=== PATIENT | female | born 1950 | race Caucasian/White ===

== ENCOUNTER 2019-05-13 10:31 | Outpatient (CLI) | payer MEDICARE, SELFPAY ==
[2019-05-13 11:05] LABS: Basophils Absolute Auto 0.12 K/mm3 (0.00-0.10); Basophils Percent Auto 1.5 % (0.0-1.0); Eosinophils Absolute Auto 0.37 K/mm3 (0.02-0.50); Eosinophils Percent Auto 4.7 % (1.0-6.0); Hematocrit 36.2 % (35.0-42.0); Immature Granulocyte Absolute 0.02 K/mm3 (0.00-0.00); Immature Granulocyte Percent A 0.3 % (0.0-0.0); Immature Platelet Fraction Pct 1.4 % (1.0-7.0); Lymphocytes Absolute Auto 2.66 K/mm3 (1.10-4.50); Lymphocytes Percent Auto 33.7 % (18.0-42.0); Mean Corpuscular HGB Conc 33.1 g/dL (32.0-36.0); Mean Corpuscular Hemoglobin 30.1 pg (27.0-31.0); Mean Corpuscular Volume 90.7 fL (78.0-102.0); Mean Platelet Volume 8.9 fl (9.2-11.8); Monocytes Percent Auto 13.9 % (2.0-11.0); Neutrophils Absolute Auto 3.6 K/mm3 (1.7-7.2); Neutrophils Percent Auto 45.9 % (50.0-70.0); Platelet Count Result 576 K/mm3 (150-420); Red Blood Count 3.99 M/mm3 (4.20-5.40); Red Cell Distribution Width 13.5 % (11.6-14.4); White Blood Count 7.9 K/mm3 (4.8-10.8)
[2019-05-13 12:06] LABS: Alanine Aminotransferase 22 U/L (14-59); Albumin Level 3.7 g/dL (3.4-5.0); Alkaline Phosphatase 87 U/L (46-116); Anion Gap 18.1 mmol/L (7-16); Aspartate Amino Transferase 15 U/L (15-37); Bilirubin,Total 0.3 mg/dL (0.00-1.00); Blood Urea Nitrogen 39 mg/dL (7-18); Calcium 9.3 mg/dL (8.5-10.1); Carbon Dioxide 24 mmol/L (21-32); Chloride 100 mmol/L (98-108); Estimated Glomerular Filt Rate 33; Ferritin 62 ng/mL (8-252); Glucose 175 mg/dL (70-99); Iron 71 ug/dL (50-170); Osmolality Calculated 297 mOsm/kg (285-295); Percent Iron Saturation 20 % (12-57); Potassium 5.1 mmol/L (3.5-5.1); Sodium 137 mmol/L (136-145)
[2019-05-17 20:05] LABS: Transferrin 283 mg/dL (188-341)
== END 2019-05-13 10:32 | disposition home or self-care (01) ==
PROVIDERS: PCP Family Medicine; Visit Provider Internal Medicine Hematology & Oncology
DX: D50.9 Iron deficiency anemia, unspecified (principal)
CPT/HCPCS: 36415; 80053; 82728; 83540; 83550; 84466; 85025; 85055

== ENCOUNTER 2019-05-27 07:26 | Outpatient (CLI) | payer MEDICARE, SELFPAY ==
[2019-05-27 08:00] VITALS: BP 126/83; PULSE 68; RESP 12; TEMP 36.6; O2SAT 97
[2019-05-27] MEDS: IRON SUCROSE COMPLEX 300 MG in SODIUM CHLORIDE 0.9% IV 250 ML 125 MG IV PUSH (08:02)
--- NOTE | 2019-05-27 10:16 | PC.NURSE ---
Patient tolerated for Venofer infusion #1 of #3. No concerns. See Mar. Safe exit of hospital.
== END 2019-05-27 07:27 | disposition home or self-care (01) ==
LOC: CHSTREATRM 07:29
PROVIDERS: PCP Family Medicine; Visit Provider Internal Medicine Hematology & Oncology
DX: D50.9 Iron deficiency anemia, unspecified (principal)
CPT/HCPCS: 96365; 96366; J1756; J7050

== ENCOUNTER 2019-06-03 07:49 | Outpatient (CLI) | payer MEDICARE, SELFPAY ==
[2019-06-03] MEDS: IRON SUCROSE COMPLEX 300 MG in SODIUM CHLORIDE 0.9% IV 235 ML 125 MG IVPB (08:38)
== END 2019-06-03 07:50 | disposition home or self-care (01) ==
LOC: CHSTREATRM 07:51
PROVIDERS: PCP Family Medicine; Visit Provider Internal Medicine Hematology & Oncology
DX: D50.9 Iron deficiency anemia, unspecified (principal)
CPT/HCPCS: 96365; 96366; J1756; J7050

== ENCOUNTER 2019-06-14 09:08 | Outpatient (CLI) | payer MEDICARE, SELFPAY ==
[2019-06-14] MEDS: IRON SUCROSE COMPLEX 300 MG in SODIUM CHLORIDE 0.9% IV 250 ML 125 MG IVPB (09:55)
--- NOTE | 2019-06-14 12:12 | PC.NURSE ---
Patient tolerated Venofer infusion. This is the last venofer infusion in this series this time. Patient reports feeling better. Having a little more energy. Safe exit of hospital.
== END 2019-06-14 09:09 | disposition home or self-care (01) ==
PROVIDERS: PCP Family Medicine; Visit Provider Internal Medicine Hematology & Oncology
DX: D50.9 Iron deficiency anemia, unspecified (principal)
CPT/HCPCS: 96365; 96366; J1756

== ENCOUNTER 2020-01-27 14:01 | Outpatient (CLI) | payer MEDICARE, SELFPAY ==
[2020-01-27 15:18] LABS: Ferritin 141 ng/mL (8-252)
== END 2020-01-27 14:02 | disposition home or self-care (01) ==
PROVIDERS: PCP Family Medicine; Visit Provider Internal Medicine Hematology & Oncology
DX: D50.9 Iron deficiency anemia, unspecified (principal)
CPT/HCPCS: 36415; 82728

== ENCOUNTER 2020-08-31 12:34 | Outpatient (CLI) | payer MEDICARE, SELFPAY ==
[2020-08-31] MEDS: IRON SUCROSE COMPLEX 300 MG in SODIUM CHLORIDE 0.9% IV 250 ML 125 MG IVPB (13:00)
[2020-08-31 13:13] VITALS: BP 111/59; PULSE 72; RESP 16; O2SAT 97
== END 2020-08-31 12:35 | disposition home or self-care (01) ==
LOC: CHSTREATRM 12:39
PROVIDERS: PCP Family Medicine; Visit Provider Internal Medicine Hematology & Oncology
DX: D50.9 Iron deficiency anemia, unspecified (principal)
CPT/HCPCS: 96365; 96366; J1756; J7050

== ENCOUNTER 2020-09-07 12:38 | Outpatient (CLI) | payer MEDICARE, SELFPAY ==
[2020-09-07 12:57] VITALS: BP 140/49; PULSE 78; RESP 14; TEMP 36.7; O2SAT 95
[2020-09-07] MEDS: IRON SUCROSE COMPLEX 300 MG in SODIUM CHLORIDE 0.9% IV 235 ML 125 MG IVPB (13:42)
--- NOTE | 2020-09-07 15:38 | PC.NURSE ---
Patient here for #2 of 3 IV Venofer infusion. No concerns voiced. IV Venofer administered. Tolerated well. Safe exit of hospital. Will return next 09/13/20 at 1300
== END 2020-09-07 12:39 | disposition home or self-care (01) ==
LOC: CHSTREATRM 12:42
PROVIDERS: PCP Family Medicine; Visit Provider Internal Medicine Hematology & Oncology
DX: D50.9 Iron deficiency anemia, unspecified (principal)
CPT/HCPCS: 96365; 96366; J1756; J7050

== ENCOUNTER 2020-09-13 12:23 | Outpatient (CLI) | payer MEDICARE, SELFPAY ==
[2020-09-13] MEDS: IRON SUCROSE COMPLEX 300 MG in SODIUM CHLORIDE 0.9% IV 250 ML 125 MG IVPB (12:35)
[2020-09-13 13:00] VITALS: BP 130/68; PULSE 72; RESP 16; O2SAT 96; BMI 41.1
--- NOTE | 2020-09-13 14:24 | PC.NURSE ---
Patient here for #3 of 3 IV Venofer infusions. No concerns voiced. Venofer IV administered. Tolerated well. Safe exit of hospital.
== END 2020-09-13 12:24 | disposition home or self-care (01) ==
LOC: CHSTREATRM 12:28
PROVIDERS: PCP Family Medicine; Visit Provider Internal Medicine Hematology & Oncology
DX: D50.9 Iron deficiency anemia, unspecified (principal)
CPT/HCPCS: 96365; 96366; J1756; J7050

== ENCOUNTER 2021-06-04 09:48 | Outpatient (CLI) | payer MEDICARE, SELFPAY ==
[2021-06-04 10:09] VITALS: BMI 43.1
[2021-06-04 10:11] VITALS: BP 138/62; PULSE 80; RESP 20; TEMP 35.7; O2SAT 98
[2021-06-04] MEDS: IRON SUCROSE COMPLEX 300 MG in SODIUM CHLORIDE 0.9% IV 250 ML 166.67 MG IVPB (10:15)
--- NOTE | 2021-06-04 11:57 | PC.NURSE ---
Patient here for #1 of 4 IV Venofer infusions. Has had Venofer infusion in past. No concerns voiced. IV Venofer administered. SEE MAR. Tolerated well. Safe exit of hospital. Will return June at 1400.
== END 2021-06-04 09:49 | disposition home or self-care (01) ==
PROVIDERS: PCP Family Medicine; Visit Provider Internal Medicine Hematology & Oncology
DX: D50.9 Iron deficiency anemia, unspecified (principal)
CPT/HCPCS: 96365; 96366; J1756; J7050

== ENCOUNTER 2021-06-11 12:19 | Outpatient (CLI) | payer MEDICARE, SELFPAY ==
[2021-06-11 12:23] VITALS: BMI 39.3
[2021-06-11] MEDS: IRON SUCROSE COMPLEX 300 MG in SODIUM CHLORIDE 0.9% IV 235 ML 125 MG IVPB (12:45)
[2021-06-11 12:51] VITALS: BP 117/60; PULSE 92; RESP 14; TEMP 35.7; O2SAT 95
--- NOTE | 2021-06-11 14:34 | PC.NURSE ---
Patient here for IV Venofer infusion #2 of 4. No concerns. IV Venofer administered. See MAR. Tolerated well. Safe exit of hospital. Will return June 18, 2021 AT 1000 For #3.
== END 2021-06-11 12:20 | disposition home or self-care (01) ==
LOC: CHSTREATRM 12:22
PROVIDERS: PCP Family Medicine; Visit Provider Internal Medicine Hematology & Oncology
DX: D50.9 Iron deficiency anemia, unspecified (principal)
CPT/HCPCS: 96365; 96366; 96367; J1756; J7050

== ENCOUNTER 2021-06-18 09:53 | Outpatient (CLI) | payer MEDICARE, SELFPAY ==
[2021-06-18 10:28] VITALS: BP 109/59; PULSE 84; RESP 14; TEMP 36.6; O2SAT 99; BMI 39.3
[2021-06-18] MEDS: IRON SUCROSE COMPLEX 300 MG in SODIUM CHLORIDE 0.9% IV 250 ML 125 MG IVPB (10:40)
--- NOTE | 2021-06-18 12:41 | PC.NURSE ---
Patient here for IV Venofer #3 of 4. No concerns voiced. IV Venofer administered see MAR. Tolerated well. Safe exit of hospital. Back 06/25/21 for #4.
== END 2021-06-18 09:54 | disposition home or self-care (01) ==
PROVIDERS: PCP Family Medicine; Visit Provider Internal Medicine Hematology & Oncology
DX: D50.9 Iron deficiency anemia, unspecified (principal)
CPT/HCPCS: 96365; 96366; J1756; J7050

== ENCOUNTER 2021-07-09 09:03 | Outpatient (CLI) | payer MEDICARE, SELFPAY ==
[2021-07-09 09:11] VITALS: BMI 39.3
[2021-07-09] MEDS: diphenhydrAMINE HCl CAP 25 MG CAPSULE PO (09:22)
[2021-07-09] MEDS: ACETAMINOPHEN 325 MG TABLET 650 MG PO (09:22)
[2021-07-09 09:23] VITALS: BP 136/79; PULSE 68; RESP 14; TEMP 36.4; O2SAT 98
[2021-07-09] MEDS: IRON SUCROSE COMPLEX 300 MG in SODIUM CHLORIDE 0.9% IV 235 ML 125 MG IVPB (09:25)
--- NOTE | 2021-07-09 11:59 | PC.NURSE ---
Patient here for #4 of 4 IV Venofer infusions. All concerns answered. Education on med given. Pre medicated with Tylenol and Benadryl this time since got chills with # 3 of 4. Also at that time had a UTI going on. IV Venofer administered SEE JUN. Tolerated well. NO chills reported. Safe exit of hospital.
== END 2021-07-09 09:04 | disposition home or self-care (01) ==
LOC: CHSTREATRM 09:06
PROVIDERS: PCP Family Medicine; Visit Provider Internal Medicine Hematology & Oncology
DX: D50.9 Iron deficiency anemia, unspecified (principal)
CPT/HCPCS: 96365; 96366; A9270; J1756; J7050

== ENCOUNTER 2022-08-29 09:47 | Outpatient (CLI) | payer MEDICARE, SELFPAY ==
[2022-08-29] MEDS: IRON SUCROSE COMPLEX 300 MG in SODIUM CHLORIDE 0.9% IV 250 ML 125 MG IVPB (10:05)
[2022-08-29 10:13] VITALS: BMI 45.6
[2022-08-29] MEDS: diphenhydrAMINE HCl CAP 25 MG CAPSULE PO (10:21)
[2022-08-29 11:02] VITALS: BMI 33.6
--- NOTE | 2022-08-29 12:00 | PC.NURSE ---
Patient here for # 1 of 3 IV Venofer infusions. Education given. No concerns voiced. Premedicated with Benadryl as ordered. IV Venofer administered. SEE MAR. Tolerated well. Safe exit of hospital per wc with . Will return September 05, 2022Thursday at 1000.
== END 2022-08-29 09:48 | disposition home or self-care (01) ==
LOC: CHSTREATRM 09:49
PROVIDERS: PCP Family Medicine; Visit Provider Internal Medicine Hematology & Oncology
DX: D50.9 Iron deficiency anemia, unspecified (principal)
CPT/HCPCS: 96365; 96366; A9270; J1756; J7050

== ENCOUNTER 2022-09-05 09:56 | Outpatient (CLI) | payer MEDICARE, SELFPAY ==
[2022-09-05 10:15] VITALS: BP 134/63; PULSE 79; RESP 20; TEMP 35.4; O2SAT 96; BMI 41.5
--- NOTE | 2022-09-05 10:15 | PC.NURSE ---
Pt to room 203 per wc accompanied by her son. A&Ox3. Plan of care explained. Pt has no questions or concerns. Oriented to room. Pt up in recliner, call martell in reach. Reminded to call with needs.
[2022-09-05] MEDS: diphenhydrAMINE HCl CAP 25 MG CAPSULE PO (10:19)
[2022-09-05] MEDS: IRON SUCROSE COMPLEX 300 MG in SODIUM CHLORIDE 0.9% IV 250 ML 125 MG IVPB (10:20)
--- NOTE | 2022-09-05 12:20 | PC.NURSE ---
IV infused. Pt tolerated well. Has no questions or complaints. Discharged to home per wc with son.
== END 2022-09-05 09:57 | disposition home or self-care (01) ==
LOC: CHSTREATRM 10:02
PROVIDERS: PCP Family Medicine; Visit Provider Internal Medicine Hematology & Oncology
DX: D50.9 Iron deficiency anemia, unspecified (principal)
CPT/HCPCS: 96365; 96366; A9270; J1756; J7050

== ENCOUNTER 2022-11-13 10:07 | Outpatient (CLI) | payer MEDICARE, SELFPAY ==
[2022-11-13 10:40] VITALS: BMI 41.5
[2022-11-13] MEDS: diphenhydrAMINE HCl CAP 25 MG CAPSULE PO (10:40)
[2022-11-13] MEDS: IRON SUCROSE COMPLEX 300 MG in SODIUM CHLORIDE 0.9% IV 250 ML 125 MG IVPB (10:50)
[2022-11-13 11:16] VITALS: BP 130/69; PULSE 68; RESP 16; TEMP 36.6; O2SAT 97
--- NOTE | 2022-11-13 12:47 | PC.NURSE ---
Patient here for IV Venofer infusion. No concerns voiced. Reports has had many of these. Premedicated with Benadryl see MAR. IV Venofer administered. SEE MAR. Tolerated well. Safe exit of hospital per wc with .
== END 2022-11-13 10:08 | disposition home or self-care (01) ==
LOC: CHSTREATRM 10:11
PROVIDERS: PCP Nurse Practitioner; Visit Provider Internal Medicine Hematology & Oncology
DX: D50.9 Iron deficiency anemia, unspecified (principal)
CPT/HCPCS: 96365; 96366; A9270; J1756; J7050

== ENCOUNTER 2023-09-11 09:29 | Outpatient (CLI) | payer MEDICARE, SELFPAY ==
[2023-09-11 09:52] VITALS: BP 131/62; PULSE 75; RESP 16; TEMP 36.4; O2SAT 94; BMI 41.0
[2023-09-11] MEDS: diphenhydrAMINE HCl CAP 25 MG CAPSULE PO (10:25)
[2023-09-11] MEDS: IRON SUCROSE COMPLEX 300 MG in SODIUM CHLORIDE 0.9% IV 250 ML 125 MG IVPB (10:25)
[2023-09-11 12:57] VITALS: BP 117/57; PULSE 81; RESP 16; TEMP 36.4; O2SAT 95
== END 2023-09-11 09:30 | disposition home or self-care (01) ==
LOC: CHSTREATRM 09:33
PROVIDERS: PCP Family Medicine; Visit Provider Internal Medicine Hematology & Oncology
DX: D50.9 Iron deficiency anemia, unspecified (principal)
CPT/HCPCS: 96365; 96366; 96367; A9270; J1756; J7050

== ENCOUNTER 2023-09-18 09:40 | Outpatient (CLI) | payer MEDICARE, SELFPAY ==
[2023-09-18] MEDS: diphenhydrAMINE HCl CAP 25 MG CAPSULE PO (10:00)
[2023-09-18 10:05] VITALS: BMI 41.0
[2023-09-18] MEDS: IRON SUCROSE COMPLEX 300 MG in SODIUM CHLORIDE 0.9% IV 250 ML 125 MG IVPB (10:15)
[2023-09-18 10:20] VITALS: BP 137/78; PULSE 78; RESP 16; TEMP 36.4; O2SAT 96
[2023-09-18 12:34] VITALS: BP 139/76; PULSE 68; RESP 16; O2SAT 96
--- NOTE | 2023-09-18 12:35 | PC.NURSE ---
Patient here for #2 of 3 IV Venofer infusion. Education given. No concerns voiced. Reports tolerated well #1 last week. Pre medication and IV Venofer administered. SEE MAR. Tolerated well. Will return 09/22/23 at 11 a.m. for #3 of 3. Safe exit of hospital per wc/.
== END 2023-09-18 09:41 | disposition home or self-care (01) ==
PROVIDERS: PCP Family Medicine; Visit Provider Internal Medicine Hematology & Oncology
DX: D50.9 Iron deficiency anemia, unspecified (principal)
CPT/HCPCS: 96365; 96366; A9270; J1756; J7050

== ENCOUNTER 2023-09-22 10:51 | Outpatient (CLI) | payer MEDICARE, SELFPAY ==
[2023-09-22 11:04] VITALS: BP 142/69; PULSE 78; RESP 16; TEMP 36.1; O2SAT 95; BMI 41.8
[2023-09-22] MEDS: diphenhydrAMINE HCl CAP 25 MG CAPSULE PO (11:17)
[2023-09-22] MEDS: IRON SUCROSE COMPLEX 300 MG in SODIUM CHLORIDE 0.9% IV 250 ML 125 MG IVPB (11:17)
[2023-09-22 13:27] VITALS: BP 135/67; PULSE 80; RESP 16; TEMP 35.9; O2SAT 95
--- NOTE | 2023-09-22 13:35 | PC.NURSE ---
Patient tolerated iron infusion well. IV site discontinued for discharge.
== END 2023-09-22 13:34 | disposition home or self-care (01) ==
PROVIDERS: PCP Family Medicine; Visit Provider Internal Medicine Hematology & Oncology
DX: D50.9 Iron deficiency anemia, unspecified (principal)
CPT/HCPCS: 96365; 96366; A9270; J1756; J7050

== ENCOUNTER 2024-05-06 10:39 | Outpatient (CLI) | payer MEDICARE, SELFPAY ==
--- OUTSIDE RECORDS SUMMARY | 2024-05-06 10:47 | XMS_ITS | Encounter Summary ---
Author Organization [facility] Address [address] [place] [address]. [place], [place] [id number] [place] [id number] Care Team Providers Care Technical Information Specialist Name Role Phone Esequiel Smiley MD Primary Care Provider [phone] Cachorro Alvarez MD Primary Care Provider [phone] Angelika Bashir MD Primary Care Provider [phone] Encounter Details Date Type Department Care Team (Late st Contact Info) Description 09/11/2018 Abstract [facility] CONVERSION [address] [place] [address] , Generic Conversion, Social History Tobacco Use Types Packs/Day Years Used Date Smoking Tobacco: Former Cigarettes 1991 Smokeless Tobacco: Never Alcohol Use Standard Drinks/Week Comments No 0 (1 standard drink = 0.6 oz pur e alcohol) AUDIT-C Answer Date Recorded Frequency of Alcohol Consumption Never 07/09/2018 Average Number of Drinks Not on file 019 Frequency of Binge Drinking Not on file 08/2018 Comments Unknown Sex and Gender Information Value Date Recorded Sex Assigned at Female 07/09/2018 10:28 AM CDT 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 Gender Identity Female 07/09/2018 10:28 AM CDT Sexual Orientation Not on file documented as of this encounter Plan of Treatment Not on file documented as of this encounter Visit Diagnoses Not on filedocumented in this encounter Additional Health Concerns Infection Onset Date Last Indicated Resolved Time COVID-19 Rule Out 01/02/2024 01/02/2024 01/02/2024 3:07 PM CDT documented as of this encounter Care Teams Technical Information Specialist Relationship Specialty Start Date End Date Esequiel Smiley MD [address] [place] [address] PCP - General FAMILY PRACTICE 07/08/18 12/13/19 Cachorro Alvarez MD [address] [place] [id number] PCP - General FAMILY PRACTICE 12/14/19 01/01/24 Angelika Bashir MD [address] [place] [address] PCP - General FAMILY PRACTICE 01/02/24 documented as of this encounter
--- OUTSIDE RECORDS SUMMARY | 2024-05-06 10:47 | XMS_ITS | Encounter Summary ---
Author Organization [facility] Address [address] [place] [address]. [place] [address] [place] [address] Care Team Providers Care Waste Elimination Name Role Phone Esequiel Smiley MD Primary Care Provider [phone] Cachorro Alvarez MD Primary Care Provider [phone] Angelika Bashir MD Primary Care Provider [phone] Encounter Details Date Type Department Care Team (Late st Contact Info) Description 06/20/2017 Abstract [facility] CONVERSION [address] [place] [address] , Generic Conversion, Social History Tobacco Use Types Packs/Day Years Used Date Smoking Tobacco: Never Assessed Comments Unknown Sex and Gender Information Value Date Recorded Sex Assigned at Female 07/09/2018 10:28 AM CDT 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 Gender Identity Female 07/09/2018 10:28 AM CDT Sexual Orientation Not on file documented as of this encounter Plan of Treatment Not on file documented as of this encounter Visit Diagnoses Not on filedocumented in this encounter Additional Health Concerns Infection Onset Date Last Indicated Resolved Time COVID-19 Rule Out 01/02/2024 01/02/2024 01/02/2024 3:07 PM CDT documented as of this encounter Care Teams Waste Elimination Relationship Specialty Start Date End Date Esequiel Smiley [place] [place] [id number] PCP - General FAMILY PRACTICE 07/08/18 12/13/19 Cachorro Alvarez MD [address] [place] [address] PCP - General FAMILY PRACTICE 12/14/19 01/01/24 Angelika Bashir MD [address] [place] [address] PCP - General FAMILY PRACTICE 01/02/24 documented as of this encounter
--- OUTSIDE RECORDS SUMMARY | 2024-05-06 10:48 | XMS_ITS | Patient Health Summary ---
Author Organization [facility] Address [address] [place] [address] Care Team Providers Care Dermatologist And Dermatopathologist Name Role Phone Cachorro Alvarez MD Primary Care Provider [phone] Note from [facility],non-owned Affiliates and Associated Physician Practices is amultiple site organization consisting of ambulatory clinics and hospital sitesin [place], [place], [place] and [place]. This disclosure is being madepursuant to the Care Everywhere program and may not contain all information available regarding this patient. Last updated 17.[facility] RF Arrays Allergies No known active allergies Medications * Be aware that medications may not be up to date on this document. Alwaysverify current medications with the patient. * amLODIPine (Norvasc) 5 MG tablet(Started 09/25/2021) Take 1 (one) tablet by mouth once daily * aspirin EC (Ecotrin) 81 MG tablet Take 1 (one) tablet by mouth once daily * albuterol HFA (Proventil; Ventolin; Proair) 108 (90 Base) MCG/ACT inhaler (Started 07/03/2021) Inhale 2 (two) puffs by mouth every 4 hours as needed * triamcinolone acetonide (Kenalog) 0.1 % ointment(Started 01/31/2021) APPLY TOPICALLY TO THE AFFECTED AREA TWICE DAILY * folic acid (Folvite) 1 MG tablet(Started 09/25/2021) Take 1 (one) tablet by mouth once daily * furosemide (Lasix) 40 MG tablet(Started 09/04/2021) Take 1 (one) tablet by mouth once daily * allopurinol (Zyloprim) 100 MG tablet(Started 11/24/2021) Take 1 (one) tablet by mouth once daily * metFORMIN (Glucophage) 1000 MG tablet(Started 10/09/2021) Take 1 (one) tablet by mouth 2 times daily with morning and evening meal * montelukast (Singulair) 10 MG tablet(Started 10/09/2021) Take 1 (one) tablet by mouth once daily * pantoprazole EC (Protonix) 40 MG tablet(Started 10/09/2021) Take 1 (one) tablet by mouth once daily * lovastatin (Mevacor) 40 MG tablet(Started 10/09/2021) Take 1 (one) tablet by mouth at bedtime * fluticasone propionate (Flonase) 50 MCG/ACT nasal spray(Started 10/24/2021) [place] 2 (two) sprays into each nostril once daily * glimepiride (Amaryl) 2 MG tablet(Started 02/12/2022) TAKE 1 TABLET BY MOUTH EVERY MORNING WITH BREAKFAST * albuterol (Accuneb) 1.25 MG/3ML nebulizer solution(Started 08/11/2022) Inhale 3 mL by mouth every 4 hours as needed * ursodiol (Karime Forte) 500 MG tablet(Started 10/24/2022) Take 1 (one) tablet by mouth 2 times daily with morning and evening meal Reasons: Primary Biliary Cholangitis 3 refills by 10/24/2023 * Trulicity 0.75 MG/0.5ML injection Inject 0.75 (three-quarters) mg subcutaneously every 7 days Active Problems Problem Noted Date Diagnosed Date 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 Nonalcoholic fatty liver disease 11/28/2021 Social History Tobacco Use Types Packs/Day Years Used Date Smoking Tobacco: Former Cigarettes 25 Smokeless Tobacco: Never Tobacco Cessation:Counseling Given: Not Answered Comments:quit smoking at 41 y/o Alcohol Use Standard Drinks/Week Comments Not Currently 0 (1 standard drink = 0.6 oz pur e alcohol) seldom in hx Sex and Gender Information Value Date Recorded Sex Assigned at Not on file Gender Identity Not on file Sexual Orientation Not on file Last Filed Vital Signs Vital Sign Reading Time Taken Comments Blood Pressure 130/58 08/20/2023 1:39 PM CDT Pulse 88 08/20/2023 1:39 PM CDT Temperature 36.5 ??C (97.7 ??F) 08/20/2023 1:39 PM CD T Respiratory Rate 20 11/28/2021 12:3 8 PM CDT Oxygen Saturation 96% 08/20/2023 1:39 PM CDT Inhaled Oxygen Concentration - - Weight 105.5 kg (232 lb 9.6 oz) 08/20/2023 1:39 PM CDT Height 160 cm (5' 3 ) 08/20/2023 1:39 PM CDT Body Mass Index 41.2 08/20/2023 1:39 PM CDT Procedures * HEMOGLOBIN A1C(Performed 08/20/2023) Performed for Metabolic syndrome, Type 2 diabetes mellitus without complication, without long-term current use of insulin (HCC) * COMPREHENSIVE METABOLIC PANEL(Performed 08/20/2023) Performed for Primary biliary cholangitis (HCC) * CBC W AUTO DIFFERENTIAL(Performed 08/20/2023) Performed for Primary biliary cholangitis (HCC) * IMAGING/RADIOLOGY/XRAY RESULTS ORDER(Performed 09/15/2022) * PT INR (EXTERNAL RESULT ENTRY)(Performed 08/08/2022) * COMP MET PANEL (EXTERNAL RESULT ENTRY)(Performed 08/08/2022) * CBC W DIFF (EXTERNAL RESULT ENTRY)(Performed 08/08/2022) * LAB RESULTS ORDER(Performed 08/08/2022) * LAB RESULTS ORDER(Performed 08/08/2022) * LAB RESULTS ORDER(Performed 08/08/2022) * LAB RESULTS ORDER(Performed 02/24/2022) * LAB RESULTS ORDER(Performed 02/24/2022) * LAB RESULTS ORDER(Performed 02/24/2022) * CYTOPLASMIC PATTERN(Performed 11/28/2021) Performed for Nonalcoholic fatty liver disease * LEXUS BLOOD SINGLE PATTERN(Performed 11/28/2021) Performed for Nonalcoholic fatty liver disease * LEXUS HEP-2 IGG BY IFA(Performed 11/28/2021) Performed for Nonalcoholic fatty liver disease * ALKALINE PHOSPHATASE BLOOD ISOENZYME PANEL(Performed 11/28/2021) Performed for Nonalcoholic fatty liver disease * LEXUS BLOOD SCREEN W/REFLEX TITER(Performed 11/28/2021) Performed for Nonalcoholic fatty liver disease * COMPREHENSIVE METABOLIC PANEL(Performed 11/28/2021) Performed for Nonalcoholic fatty liver disease * IGM BLOOD(Performed 11/28/2021) Performed for Nonalcoholic fatty liver disease * IGG BLOOD(Performed 11/28/2021) Performed for Nonalcoholic fatty liver disease * IGA BLOOD(Performed 11/28/2021) Performed for Nonalcoholic fatty liver disease Results * (ABNORMAL) HEMOGLOBIN A1C (08/20/2023 2:42 PM CDT) Pathologist [facility] Hemoglobin A1c 6.6(H) <=5.6 % 08/21/2023 9:06 AM CDT [facility] Estimated Average Glucose 143 mg/dL 08/21/2023 9:06 AM T [facility] Comment: HbA1c Interpretation: Normal : < 5.7% Pre-diabetes: 5.7-6.4% Diabetes: Equal to or greater than 6.5% Test results diagnostic of diabetes should be repeated for confirmation. Treatment target values recommended by ADA and other clinical organizations should be used to evaluate metabolic control in patients. Reference: [place] [employer] Association, Standards of Care in Diabetes -2020 In patients 70 years and older consider HbA1c target range of 7.0-7.5% (Reference: Kai Robb et al. JAMDA. 2012) The Sebia assay for the measurement of HbA1c is a National Glycohemoglobin Standardization Program (NGSP) certified method. Blood BLOOD SPECIMEN / Unknown Lab Venipuncture / Unknown 08/20/2023 2:42 PM CDT 08/20/2023 2:54 PM CDT Cindy Wilkerson MD LAB - CHEMISTRY JAMEL GAUTHIER [facility] Organization Address City/State/[facility] Co de Phone Number [facility] [address] [address], [facility] [phone] * (ABNORMAL) CBC W/ DIFFERENTIAL (08/20/2023 2:42 PM CDT) [facility] WBC 11.2(H) 4.0 - 10.7 x10E9/L 08/20/2023 3:00 PM CDT [facility] RBC Count 3.93 3.90 - 5.20 x10E12/L 08/20/2023 3:00 PM CDT [facility] Hemoglobin 11.9 11.9 - 15.8 g/dL 08/20/2023 3:00 PM [facility] Hematocrit 35.8 34.8 - 46.1 % 08/20/2023 3:00 PM [facility] MCV 91.1 80.0 - 98.0 fL 08/20/2023 3:00 PM [facility] MCH 30.3 26.7 - 33.6 pg 08/20/2023 3:00 PM [facility] MCHC 33.2 31.7 - 36.3 g/dL 08/20/2023 3:00 PM [facility] RDW-CV 15.1(H) 11.3 - 14.8 % 08/20/2023 3:00 PM [facility] Platelet Count 570(H) 150 - 420 x10E9/L 08/20/2023 3:00 PM [facility] MPV 9.1 7.8 - 11.4 fL 08/20/2023 3:00 PM [facility] Neutrophil % 54.0 41.0 - 74.0 % 08/20/2023 3:00 PM [facility] Lymphocyte % 30.2 17.0 - 47.0 % 08/20/2023 3:00 PM [facility] Monocyte % 11.2(H) 3.0 - 11.0 % 08/20/2023 3:00 PM [facility] Eosinophil % 3.0 0.0 - 7.0 % 08/20/2023 3:00 PM [facility] Basophil % 1.3 0.0 - 1.6 % 08/20/2023 3:00 PM [facility] Immature Granulocytes % 0.3 0.0 - 1.0 % 08/20/2023 3:00 PM [facility] Neutrophil Absolute 6.04 1.60 - 7.50 x10E9/L 08/20/2023 3:00 PM [facility] Lymphocyte Absolute 3.38 1.00 - 4.40 x10E9/L 08/20/2023 3:00 PM [facility] Monocyte Absolute 1.25(H) 0.15 - 1.00 x10E9/L 08/20/2023 3:00 PM [facility] Eosinophil Absolute 0.34 0.00 - 0.60 x10E9/L 08/20/2023 3:00 PM [facility] Basophil Absolute 0.15(H) 0.00 - 0.13 x10E9/L 08/20/2023 3:00 PM [facility] NRBC 0.2(H) <=0.0 /100 WBC 08/20/2023 3:00 PM [facility] Blood BLOOD SPECIMEN / Unknown Lab Venipuncture / Unknown 08/20/2023 2:42 PM CDT 08/20/2023 2:54 PM CDT Cindy Wilekrson MD LAB - HEMATOLOGY ORD ERABLES [facility] [address] [place] [phone], [facility] [phone] * (ABNORMAL) COMPREHENSIVE METABOLIC PANEL (08/20/2023 2:42 PM CDT) Only the most recent of2 resultswithin the time period is included. BUN 28(H) 7 - 26 mg/dL 08/20/2023 3:27 PM [facility] Creatinine 1.16(H) 0.56 - 0.96 mg/dL 08/20/2023 3:27 PM [facility] Sodium 139 136 - 145 mmol/L 08/20/2023 3:27 PM [facility] Potassium 3.7 3.5 - 4.5 mmol/L 08/20/2023 3:27 PM [facility] Chloride 101 98 - 107 mmol/L 08/20/2023 3:27 PM [facility] CO2 25 22 - 29 mmol/L 08/20/2023 3:27 PM [facility] Glucose 129(H) 70 - 115 mg/dL 08/20/2023 3:27 PM [facility] Calcium 10.1 8.4 - 10.2 mg/dL 08/20/2023 3:27 PM [facility] Protein Total 8.0 6.0 - 8.3 g/dL 08/20/2023 3:27 PM [facility] Albumin 3.6 3.4 - 5.0 g/dL 08/20/2023 3:27 PM [facility] Bilirubin Total 0.3 0.2 - 1.2 mg/dL 08/20/2023 3:27 PM [facility] Alkaline Phosphatase 114 40 - 150 U/L 08/20/2023 3:27 PM [facility] ALT 17 5 - 55 U/L 08/20/2023 3:27 PM [facility] AST 14 5 - 34 U/L 08/20/2023 3:27 PM [facility] Anion Gap 13 6 - 16 08/20/2023 3:27 PM [facility] BUN/Creatinine Ratio 24(H) 7 - 23 08/20/2023 3:27 PM [facility] Osmolality Calculated 295 275 - 295 mOsm/kg 08/20/2023 3:27 PM [facility] Albumin/Globulin Ratio 0.8(L) 1.1 - 2.3 08/20/2023 3:27 PM [facility] eGFR by CKD-EPI 49(L) >=90 mL/min/1.7 3 m2 08/20/2023 3:27 PM [facility] Blood BLOOD SPECIMEN / Unknown Lab Venipuncture / Unknown 08/20/2023 2:42 PM CDT 08/20/2023 2:54 PM CDT Cindy Wilkerson MD LAB - CHEMISTRY JAMEL GAUTHIER [facility] Organization Address [facility] Co de Phone Number [facility] [address] [place] [phone] [phone] * IMAGING RADIOLOGY XRAY RESULTS ORDER (09/15/2022) Anatomical Region Laterality Modality Other 09/15/2022 Narrative 09/15/2022 Ordered by an unspecified provider. Scanned Document IMAGING * (ABNORMAL) CBC W DIFF (EXTERNAL RESULT ENTRY) (08/08/2022 10:12 AM CDT) WBC (EXTERNAL RESULT) 14.82(A) 10^3/ul [facility] Hemoglobin (EXTERNAL RESULT) 11.0(A) g/dl [facility] Hematocrit (EXTERNAL RESULT) 33.8(A) % [facility] Platelets (EXTERNAL RESULT) 647(A) 10^3/ul [facility] Neutrophil Absolute (EXTERNAL RESULT) 8.52 10^3/ul [facility] Blood BLOOD SPECIMEN / Unknown 08/08/2022 10:12 AM CDT Historical Provider LAB - HEMATOLOGY ORDERABLES Performing Organization Address City/[facility]/ZIP Co de Phone Number [address] [address], [facility] [phone] * PT INR (EXTERNAL RESULT ENTRY) (08/08/2022 10:12 AM CDT) PT (EXTERNAL) 11.3 sec [facility] INR (EXTERNAL RESULT) 1.0 [facility] Blood BLOOD SPECIMEN / Unknown 08/08/2022 10:12 AM CDT Historical Provider LAB - CHEMISTRY O RDERABLES Performing Organization Address City/[facility]/ZIP Co de Phone Number [address] [address], [facility] [phone] * (ABNORMAL) COMP MET PANEL (EXTERNAL RESULT ENTRY) (08/08/2022 10:12 AM CDT) Glucose (EXTERNAL) 118(A) mg/dL [facility] Sodium (EXTERNAL RESULT) 137 mmol/L [facility] Potassium (EXTERNAL RESULT) 4.2 mmol/L [facility] Chloride (EXTERNAL RESULT) 98 mmol/L [facility] CO2 (EXTERNAL) 30.3 mmol/L [facility] Calcium (EXTERNAL RESULT) 9.2 mg/dL [facility] Anion Gap (EXTERNAL RESULT) 8.7 mmol/L [facility] BUN (EXTERNAL RESULT) 31(A) mg/dL [facility] Creatinine (EXTERNAL RESULT) 1.35(A) mg/dl [facility] Alkaline Phosphatase (EXTERNAL RESULT) 139 U/L [facility] ALT (EXTERNAL RESULT) 21 U/L [facility] AST (EXTERNAL RESULT) 14(A) U/L [facility] Protein Total (EXTERNAL RESULT) 8.3(A) gm/dL [facility] Albumin (EXTERNAL RESULT) 3.1(A) gm/dL [facility] Bilirubin Total (EXTERNAL RESULT) 0.2 mg/dL [facility] eGFR MDRD (EXTERNAL RESULT) 42(A) mL/min/1.7 3m2 [facility] eGFR (EXTERNAL) [facility] Blood BLOOD SPECIMEN / Unknown 08/08/2022 10:12 AM CDT Historical Provider LAB - CHEMISTRY Jacoby ROWE [facility] [address] [place] [address], [facility] [phone] * LAB RESULTS ORDER (08/08/2022) Only the most recent of6 resultswithin the time period is included. 08/08/2022 Narrative 08/08/2022 Ordered by an unspecified provider. Scanned Document LAB - THERAPEUTIC DR DENNISON MONITORING ORDERABLES * (ABNORMAL) CYTOPLASMIC PATTERN (11/28/2021 3:13 PM CDT) Cytoplasmic Pattern Titer 1:2560(A) 12/02/2021 1:16 PM CDT [facility] ([facility]) Cytoplasmic Pattern AMA(A) 12/02/2021 1:16 PM CDT Mosec, Mobile Secretary ([facility]) Comment: Performed By: [employer] [address] [place] [id number] Die Designer: Martínez Mcgrath MD, PhD Blood BLOOD SPECIMEN / Unknown Lab Venipuncture / Unknown 11/28/2021 3:13 PM CDT 11/28/2021 5:09 PM CDT Cindy Wilkerson MD LAB - CHEMISTRY JAMEL GAUTHIER [email or web address] ([facility]) [address] * (ABNORMAL) LEXUS BLOOD SINGLE PATTERN (11/28/2021 3:13 PM CDT) LEXUS Pattern Homogeneo us(A) 12/02/2021 1:16 PM CDT [facility] ([facility]) LEXUS Titer 1:2560(A) 12/02/2021 1:16 PM CDT [email or web address] ([facility]) Comment: Performed By: [employer] [address] [place] [address] Die Designer: Martínez Mcgrath MD, PhD Blood BLOOD SPECIMEN / Unknown Lab Venipuncture / Unknown 11/28/2021 3:13 PM CDT 11/28/2021 5:09 PM CDT Cindy Wilkerson MD LAB - CHEMISTRY JAMEL GAUTHIER Performing Organization Address [facility] Co de Phone Number [facility] [employer] ([facility]) [address] * (ABNORMAL) LEXUS HEP-2 IGG BY IFA (11/28/2021 3:13 PM CDT) Pathologist [facility] LEXUS HEp-2 IgG Detected (H) <1:80 12/02/2021 1:16 PM CDT [facility] [employer] ([facility]) LEXUS Interpretive Comment See Note 12/02/2021 1:16 PM CDT [facility] ([facility]) Comment: Homogeneous Pattern Clinical associations: SLE, drug-induced SLE or HAO. Main autoantibodies: Anti-dsDNA, anti-histones or anti-chromatin (anti-nucleosome) Cytoplasmic reticular/AMA pattern Clinical Associations: PBC, SSc, PBC-SSc overlap syndrome, and PBC-SjS overlap syndrome Main autoantibodies: Anti-mitochondrial antibody List of Abbreviations Antisynthetase syndrome (ARS), chronic active hepatitis (CAH), ?? inflammatory ??myopathies (IM) [dermatomyositis (DM), polymyositis (PM), necrotizing autoimmune myopathy (NAM)], interstitial lung disease (ILD), juvenile idiopathic arthritis (HAO), mixed connective tissue disease (MCTD), primary biliary cholangitis (PBC), rheumatoid arthritis (RA), systemic autoimmune rheumatic diseases (SARD), Sjogren syndrome (SjS), systemic lupus erythematosus (SLE), systemic sclerosis (SSc), undifferentiated connective tissue disease (UCTD). INTERPRETIVE INFORMATION: LEXUS Interpretive Comment Presence of antinuclear antibodies (LEXUS) is a hallmark feature of systemic autoimmune rheumatic diseases (SARD). However, LEXUS lacks diagnostic specificity and is associated with a variety of diseases (cancers, autoimmune, infectious, and inflammatory conditions) ??and may also occur in healthy individuals in varying prevalence. The lack of diagnostic specificity requires confirmation of positive LEXUS by more specific serologic tests. LEXUS (nuclear reactivity) positive patterns reported include centromere, homogeneous, nuclear dots, nucleolar, or speckled. LEXUS (cytoplasmic reactivity) positive patterns reported include reticular/AMA, discrete/GW body-like, polar/golgi-like, cytoplasmic speckled or rods and rings. All positive patterns are reported to endpoint titers (1:2560). Reported patterns may help guide differential diagnosis, although they may not be specific for individual antibodies or diseases. Mitotic staining patterns not reported. ??Negative results do not necessarily rule out SARD. Performed By: [employer] [address] [place] [address] Die Designer: Martínez Mcgrath MD, PhD Blood BLOOD SPECIMEN / Unknown Lab Venipuncture / Unknown 11/28/2021 3:13 PM CDT 11/28/2021 5:09 PM CDT Cindy Wilkerson MD LAB - SEROLOGY ORDER HARLAN Mose[employer], Mobile Secretary [facility]) [address] [place] [address], [facility] * (ABNORMAL) ALKALINE PHOSPHATASE BLOOD ISOENZYME PANEL (11/28/2021 3:13 PM CDT) Alkaline Phosphatase Isoenzymes Bone 32 0 - 55 U/L 12/02/2021 12:23 AM CDT Mosec, Mobile Secretary [facility]) Alkaline Phosphatase Isoenzymes 160(H) 40 - 120 U/L 12/02/2021 12:23 AM CDT Mose[employer], Mobile Secretary [facility]) Alkaline Phosphatase Isoenzymes Liver 128(H) 0 - 94 U/L 12/02/2021 12:23 AM CDT [employer], Mobile Secretary [facility]) Comment: INTERPRETIVE INFORMATION: Alk-Phosphatase Liver Calc Bone Specific Alkaline Phosphatase (6370736) and 5'-nucleotidase ([id number]) may be useful in identifying disorders of bone and liver, respectively. Alkaline Phosphatase Isoenzymes Other 0 U/L 12/02/2021 12:23 AM CDT [facility] [employer] ([facility]) Comment: Performed By: [employer] [address] [place] [address] Die Designer: Martínez Mcgrath MD, PhD Blood BLOOD SPECIMEN / Unknown Lab Venipuncture / Unknown 11/28/2021 3:13 PM CDT 11/28/2021 5:09 PM CDT Cindy Wilkerson MD LAB - CHEMISTRY JAMEL GAUTHIER [facility] [employer] [facility]) [address] [place] [address], [facility] * (ABNORMAL) LEXUS BLOOD SCREEN W/REFLEX TITER (11/28/2021 3:13 PM CDT) LEXUS IgG Detected (A) None Detected 11/30/2021 12:30 AM CDT [facility] [employer] ([facility]) Comment: Antibodies to Anti-Nuclear Antibodies (LEXUS) detected. Additional testing to follow. INTERPRETIVE INFORMATION: Anti-Nuclear Antibodies (LEXUS), IgG by ADRIANNA Antinuclear Antibodies (LEXUS), IgG by ADRIANNA: LEXUS specimens are screened using enzyme-linked immunosorbent assay (ADRIANNA) methodology. All ADRIANNA results reported as Detected are further tested by indirect fluorescent assay (IFA) using HEp-2 substrate with an IgG-specific conjugate. The LEXUS ADRIANNA screen is designed to detect antibodies against dsDNA, histones, SS-A (Ro), SS-B (La), George, George/DIRECTOR PRISON, Scl-70, Loan-1, centromeric proteins, other antigens extracted from the HEp-2 cell nucleus. LEXUS ADRIANNA assays have been reported to have lower sensitivities than LEXUS IFA for systemic autoimmune rheumatic diseases (SARD). Negative results do not necessarily rule out SARD. Performed By: [employer] [address] [place] [address] Die Designer: Martínez Mcgrath MD, PhD Blood BLOOD SPECIMEN / Unknown Lab Venipuncture / Unknown 11/28/2021 3:13 PM CDT 11/28/2021 5:09 PM CDT Cidny Wilkerson MD LAB - CHEMISTRY JAMEL GAUTHIER [facility] [employer] ([facility]) [address] [place] [address], [facility] * IGM BLOOD (11/28/2021 3:13 PM CDT) IgM 72 37 - 286 mg/dL 11/28/2021 5:31 PM CDT [facility] Blood BLOOD SPECIMEN / Unknown Lab Venipuncture / Unknown 11/28/2021 3:13 PM CDT 11/28/2021 5:09 PM CDT Cindy Wilkerson MD LAB - CHEMISTRY JAMEL GAUTHIER Performing Organization Address City/[facility]/ZIP Co de Phone Number [address] [address], [facility] [phone] * IGG BLOOD (11/28/2021 3:13 PM CDT) IgG 1,425 767 - 1,590 mg/dL 11/28/2021 5:31 PM CDT [facility] Blood BLOOD SPECIMEN / Unknown Lab Venipuncture / Unknown 11/28/2021 3:13 PM CDT 11/28/2021 5:09 PM CDT Cindy Wilkerson MD LAB - CHEMISTRY JAMEL GAUTHIER [address] [address], [place] [phone] * (ABNORMAL) IGA BLOOD (11/28/2021 3:13 PM CDT) IgA 634(H) 61 - 356 mg/dL 11/28/2021 5:31 PM CDT [facility] Comment:Result obtained by sandra castellano. Blood BLOOD SPECIMEN / Unknown Lab Venipuncture / Unknown 11/28/2021 3:13 PM CDT 11/28/2021 5:09 PM CDT Cindy Wilkerson MD LAB - CHEMISTRY JAMEL GAUTHIER [facility] [address] [place] [phone], [facility] [phone] Care Teams Dermatologist And Dermatopathologist Relationship Specialty Start Date End Date Cachorro lAvarez MD [address] [place] [address] PCP - General 11/28/21
--- OUTSIDE RECORDS SUMMARY | 2024-05-06 10:48 | XMS_ITS | Clinical Summary ---
Author Organization [facility] [facility] Address [address] [place] [address] Care Team Providers Care Licensed Veterinary Technician Name Role Phone Cachorro Alvarez MD Primary Care Provider [phone] [facility],non-owned Affiliates and Associated Physician Practices is amultiple site organization consisting of ambulatory clinics and hospital sitesin [place], [place], [place] and [place]. This disclosure is being madepursuant to the Care Everywhere program and may not contain all information available regarding this patient. Last updated 17.[facility] Allergies No known active allergies Medications * Be aware that medications may not be up to date on this document. Alwaysverify current medications with the patient. Medication Sig Dispensed Refills Start Date End Date Status amLODIPine (Norvasc) 5 MG tablet Take 1 (one) tablet by mouth once daily 09/25/2021 Active aspirin EC (Ecotrin) 81 MG tablet Take 1 (one) tablet by mouth once daily Active albuterol HFA (Proventil; Ventolin; Proair) 108 (90 Base) MCG/ACT inhaler Inhale 2 (two) puffs by mouth every 4 hours as needed 07/03/2021 Active triamcinolone acetonide (Kenalog) 0.1 % ointment APPLY TOPICALLY TO THE AFFECTED AREA TWICE DAILY 01/31/2021 Active folic acid (Folvite) 1 MG tablet Take 1 (one) tablet by mouth once daily 09/25/2021 Active furosemide (Lasix) 40 MG tablet Take 1 (one) tablet by mouth once daily 09/04/2021 Active allopurinol (Zyloprim) 100 MG tablet Take 1 (one) tablet by mouth once daily 11/24/2021 Active metFORMIN (Glucophage) 1000 MG tablet Take 1 (one) tablet by mouth 2 times daily with morning and evening meal 10/09/2021 Active montelukast (Singulair) 10 MG tablet Take 1 (one) tablet by mouth once daily 10/09/2021 Active pantoprazole EC (Protonix) 40 MG tablet Take 1 (one) tablet by mouth once daily 10/09/2021 Active lovastatin (Mevacor) 40 MG tablet Take 1 (one) tablet by mouth at bedtime 10/09/2021 Active fluticasone propionate (Flonase) 50 MCG/ACT nasal spray Belva 2 (two) sprays into each nostril once daily 10/24/2021 Active glimepiride (Amaryl) 2 MG tablet TAKE 1 TABLET BY MOUTH EVERY MORNING WITH BREAKFAST 02/12/2022 Active albuterol (Accuneb) 1.25 MG/3ML nebulizer solution Inhale 3 mL by mouth every 4 hours as needed 08/11/2022 Active ursodiol (Karime Forte) 500 MG tabletIndications :Primary Biliary Cholangitis Take 1 (one) tablet by mouth 2 times daily with morning and evening meal Reasons: Primary Biliary Cholangitis 180 tablet 3 10/24/2022 Active Trulicity 0.75 MG/0.5ML injection Inject 0.75 (three-quarters) mg subcutaneously every 7 days Active Active Problems Problem Noted Date Diagnosed Date 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 Nonalcoholic fatty liver disease 11/28/2021 Social History Tobacco Use Types Packs/Day Years Used Date Smoking Tobacco: Former Cigarettes 1 25 Smokeless Tobacco: Never Tobacco Cessation:Counseling Given: [...] Mass Index 41.2 08/20/2023 1:39 PM CDT Plan of Treatment Upcoming Encounters Date Type Department Care Team (Late st Contact Info) Description 08/25/2024 12:00 PM CDT Office Visit [facility] [address] [place] [id number] Cindy Wilkerson MD [address] [facility] [address] [address] [place] [address] Health Maintenance Due Date Last Done Comments BONE DENSITY TESTING 1950 COLOGUARD (AGES 45-75) - COLON CA SCREENING 1949 COLON MONITORING 1949 COLONOSCOPY - COLON CA SCREENING 1949 CT COLONOGRAPHY - COLON CA SCREENING 1950 Colorectal Cancer Screening 1950 FIT - COLON CA SCREENING 1949 FLEX SIG - COLON CA SCREENING 1950 MEDICARE AWV ? 12 MONTHS 1950 HIB VACCINE (1 of 1 - Risk 1-dose series) 11/17/1950 MENINGOCOCCAL VACCINE (1 - Risk 2-dose series) 08/18/1951 MENINGOCOCCAL (Group B) VACCINE (1 of 5 - Increased Risk) 08/18/1959 HEPATITIS C SCREENING 08/13/1967 DTAP/TDAP/TD VACCINES (1 - Tdap) 1968 PNEUMOCOCCAL VACCINE 50+ (1 of 2 - PCV) 1968 ZOSTER VACCINE (1 of 2) 08/18/1999 HEPATITIS B VACCINE (1 of 3 - Risk 3-dose series) 2009 Respiratory Syncytial Virus (RSV) Vaccine Pt: or over 60 yrs (1 - Risk 60-74 years 1-dose series) 2009 COVID-19 VACCINE (3 - season) 2023 09/14/2020, 2020 INFLUENZA VACCINE (#1) 2023 DEPRESSION SCREENING 04/06/2024 MAMMOGRAM 04/22/2025 04/22/2023, 12/0 10/2022, 03/11/2022, Additional history exists HPV VACCINE Aged Out No longer eligi ble based on patient's age to complete this topic Goals Goal Patient Goal Type Associated Problems Recent Progress Patient-Stated? Author Medication Management General On track( 022 12:56 PM CDT) Nathen Sagastume, RN Note: Expected end date: Interventions: Take all medications as prescribed Let your doctor know right away about any changes in your medications Make sure to request a refill of your medication at least one week prior to your last dose Care Teams Licensed Veterinary Technician Relationship Specialty Start Date End Date Cachorro Alvarez MD [address] [place] [phone] PCP - General 11/28/21
--- OUTSIDE RECORDS SUMMARY | 2024-05-06 10:48 | XMS_ITS | Clinical Summary ---
Author Organization [facility] Address [address] [place] [address]. [place], [place] [address] [place] [id number] Care Team Providers Care Electro Mechanical Assembler Name Role Phone Angelika Bashir MD Primary Care Provider [phone] Allergies Active Allergy Reactions Criticality Noted Date Comments Pseudoephedrine Hcl Er Unknown 09/14/2015 Seasonal Unknown 07/09/2018 Medications aspirin 81 MG tablet Take 1 tablet (81 mg total) by mouth daily. Active folic acid 1 MG tablet Take 1 tablet (1 mg total) by mouth daily. 4 Active furosemide 40 MG tablet Take 1 tablet (40 mg total) by mouth daily. 4 Active metFORMIN 1000 MG tablet Take 1 tablet (1,000 mg total) by mouth 2 (two) times a day. 7 Active pantoprazole EC 40 MG tablet Take 1 tablet (40 mg total) by mouth 2 (two) times a day. 4 Active montelukast 10 MG tablet Take 1 tablet (10 mg total) by mouth daily. 7 Active lovastatin 40 MG tablet Take 1 tablet (40 mg total) by mouth nightly at bedtime. 7 Active albuterol sulfate HFA 108 (90 Base) MCG/ACT inhaler Inhale 2 puffs into the lungs every 4 (four) hours as needed. Active fluticasone propionate 50 MCG/ACT nasal spray 2 sprays by Nasal route daily. Active triamcinolone 0.1 % ointment Apply 1 Application topically as needed. Active glimepiride (AMARYL) 4 MG tablet Take 1 tablet (4 mg total) by mouth every morning before breakfast. 4 Active allopurinol (ZYLOPRIM) 100 MG tablet Take 1 tablet (100 mg total) by mouth 2 (two) times daily. 4 Active ursodiol (TERESA FORTE) 500 MG tablet Take 1 tablet (500 mg total) by mouth 3 (three) times daily. 4 Active cetirizine (ZYRTEC) 10 MG chewable tablet Chew 1 tablet (10 mg total) by mouth daily. Active magnesium oxide (MAG-OX) 400 (240 Mg) MG tablet Take 1 tablet (400 mg total) by mouth daily. 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[facility]) 04/27 Resolved Problems Problem Noted Date Diagnosed Date Resolved Date Hypokalemia 01/04/2024 01/05/2024 Hypoxia 01/02/2024 01/04/2024 Leukocytosis 01/02/2024 01/05/2024 Sepsis ([facility]) 01/02/202404/2023 Acute kidney injury 06/23/2021 06/25/19 22 RUQ pain 07/09/2018 09/01/2018 Deep vein thrombosis of lowe r extremity ([facility]) 12/04/2012 07/09/2018 Cellulitis of left leg 11/30/201207/09 Encounter for preventive health examination 11/29/2012 07/09/2018 Encounters Date Type Department Care Team Description 04/22/2024 2:16 PM OFFLINE EDITOR - 04/22/2024 11:59 PM OFFLINE EDITOR Hospital Encounter [facility] [address] [place], [place] [id number] [phone] Rosalba Thomas MD Discharge Disposition: Home or Self Care (Routine Discharge) 04/22/2024 1:42 PM OFFLINE EDITOR - 04/22/2024 2:15 PM OFFLINE EDITOR Hospital Encounter [address] [place] [address] Rosalba Thomas MD Discharge Disposition: Home or Self Care (Routine Discharge) 04/22/2024 Orders Only [address] [place] [address] Rosalba Thomas MD 04/22/2024 Travel 04/14/2024 2:23 PM OFFLINE EDITOR - 04/14/2024 11:59 PM OFFLINE EDITOR Hospital Encounter [address] [place] [address] Jacqueline Cabrera APNP Discharge Disposition: Home or Self Care (Routine Discharge) 04/14/2024 2:15 PM OFFLINE EDITOR - 04/14/2024 2:22 PM OFFLINE EDITOR Hospital Encounter [address] [place] [address] Angelika Bashir MD Rao, Krishna A, MD Discharge Disposition: Home or Self Care (Routine Discharge) 04/14/2024 Orders Only [address] [place] [address] Jacqueline Cabrera APNP 04/14/2024 Orders [place] [address] [place] [address] Tom Kwon MD 04/14/2024 Travel from Last 3 Months Immunizations Name Administration Dates Next Due MODERNA COVID-19 (12+) MRNA, LNP-S, PF, 100 MCG/ 0.5 ML DOSE 09/14/2020,2020 Family History Medical History Relation Comments Cancer Brother Diabetes Mother Heart Disease Mother Relation Status Comments Brother Mother Social History Tobacco Use Types Packs/Day Years Used Date Smoking Tobacco: Former Cigarettes 1 5 - 1991 Smokeless Tobacco: Never Tobacco Cessation:Counseling Given: Not Answered Alcohol Use Standard Drinks/Week Comments No 0 (1 standard drink = 0.6 oz pur e alcohol) [facility] Utilities Answer Date Recorded In the past 12 months has th e electric, gas, oil, or water company threatened to shut off services in your home? No 01/02/2024 Humiliation, Afraid, Rape, and Kick questionnair e Answer Date Recorded Within the last year, have y ou been afraid of your partner or ex-partner? No 01/02/2024 Within the last year, have y ou been humiliated or emotionally abused in other ways by your partner or ex-partner? No Within the last year, have y ou been kicked, hit, slapped, or otherwise physically hurt by your partner or ex-partner? No 01/02/2024 Within the last year, have y ou been raped or forced to have any kind of sexual activity by your partner or ex-partner? No 01/02/2024 AUDIT-C Answer Date Recorded Frequency of Alcohol Consumption Never 07/09/2018 Average Number of Drinks Not on file 019 Frequency of Binge Drinking Not on file 08/2018 Overall Financial Resource Strain (CARDIA) Answe r Date Recorded How hard is it for you to pa y for the very basics like food, housing, medical care, and heating? Not hard at all 01/02/2024 Hunger Vital Sign Answer Date Recorded Within the past 12 months, y ou worried that your food would run out before you got the money to buy more. Never true 01/02/20 24 Within the past 12 months, t he food you bought just didn't last and you didn't have money to get more. Never true 01/02/2024 PRAPARE - Transportation Answer Date Re corded In the past 12 months, has l ack of transportation kept you from medical appointments or from getting medications? No 12/06 In the past 12 months, has l ack of transportation kept you from meetings, work, or from getting things needed for daily living? No 01/02/2024 Housing Stability Vital Sign Answer Marty e Recorded In the last 12 months, was t here a time when you were not able to pay the mortgage or rent on time? No 01/02/2024 In the past 12 months, how m any times have you moved where you were living? 0 01/02/2024 At any time in the past 12 m [facility], were you homeless or living in a intermediate (including now)? No 01/02/2024 Comments No Sex and Gender Information Value Date Recorded Sex Assigned at Female 07/09/2018 10:28 AM CDT Legal Sex Female 7:06 PM OFFLINE EDITOR Gender Identity Female 07/09/2018 10:28 AM CDT Sexual Orientation Not on file Last Filed Vital Signs Vital Sign Reading Time Taken Comments Blood Pressure 130/55 01/05/2024 4:44 AM CDT Pulse 80 01/05/2024 4:44 AM CDT Temperature 35.7 ??C (96.3 ??F) 01/05/2024 4:44 AM CD T Respiratory Rate 18 01/05/2024 4:44 AM CDT Oxygen Saturation 94% 01/05/2024 4:44 AM CDT Inhaled Oxygen Concentration - - Weight 104 kg (229 lb 6 oz) 01/05/2024 4:44 AM C DT Height 160 cm (5' 3 ) 01/02/2024 1:31 PM CDT Body Mass Index 40.63 01/02/2024 1:31 PM CDT Plan of Treatment Health Maintenance Due Date Last Done Comments Colorectal Cancer Screening Colonoscopy (10 Years) 1949 Pneumococcal Vaccine: 65+ Years (1 of 2 - PCV) 08/18/1955 Meningococcal B Vaccine (1 of 5 - Increased Risk) 08/18/1959 Diabetes: Retinopathy Eye Exam 08/18/1967 DTaP, Tdap and Td Vaccines (1 - Tdap) 1968 Zoster Vaccines (1 of 2) 08/18/1999 RSV Immunization or 60+ Years (1 - Risk 60-74 years 1-dose series) 2009 Meningococcal Vaccine (2 - Risk 2-dose series) 10/28/2013 09/02/2013 Annual Medicare Wellness Visit 2014 Dexa Scan (General) 2014 COVID-19 Vaccine (3 - season) 2023 09/14/2020, 2020 Influenza Adult (#1) 2024 Hemoglobin A1C 10/12/2024 04/14/2024, 0509/2023, 01/30/2022 Kidney Health Evaluation 04/14/2025 04/14/2024 Lipid Panel 04/14/2025 04/14/2024, 01/30/2022 Mammogram Screening 04/22/2025 04/22/2023, 03/12/2023, 03/11/2022, Additional history exists Hepatitis C Completed 02/24/2022 RSV Immunizations Under 20 Months Aged Out No longer eligible based on patient's age to complete this topic Goals Goal Patient Goal Type Associated Problems Recent Progress Patient-Stated? Author Safety ? 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 EDUCATION Procedures Procedure Name Priority Date/Time Associated Diagnosis Comments US RETROPERITONEAL COMP Routine 04/22/19 25 2:13 PM OFFLINE EDITOR RASHIDA (acute kidney injury) ([facility]) URINE BACTERIA CULTURE Routine 2:12 PM OFFLINE EDITOR Unspecified symptoms and signs involving the genitourinary system HC URINALYSIS AUTO W/MICRO Routine 04/22/2024 2:12 PM OFFLINE EDITOR Unspecified symptoms and signs involving the genitourinary system ALBUMIN URINE RANDOM W/CREATININE Routine 04/14/2024 2:35 PM OFFLINE EDITOR Mixed hyperlipidemia Type 2 diabetes mellitus not at goal (CMS/HCC HHS/HCC) HEMOGLOBIN, GLYCOSYLATED Routine 04/14/2024 2:33 PM OFFLINE EDITOR Mixed hyperlipidemia Type 2 diabetes mellitus not at goal (CMS/HCC HHS/HCC) LIPID PANEL Routine 04/14/2024 2:33 PM OFFLINE EDITOR Mixed hyperlipidemia Type 2 diabetes mellitus not at goal (CMS/HCC HHS/HCC) FERRITIN Routine 04/14/2024 2:33 PM OFFLINE EDITOR Anemia, iron deficiency IRON SAT PANEL (IRON,IBC,%SAT) Routine 04/14/2024 2:33 PM OFFLINE EDITOR Anemia, iron deficiency CBC W/DIFF AUTOMATED Routine 04/14/2024 2:33 PM OFFLINE EDITOR Anemia, iron deficiency MG DIAG W JABARI RT DIGI Routine 1:53 PM OFFLINE EDITOR Abnormal breast finding HEPATITIS C ANTIBODY Routine 02/24/2022 2:53 PM OFFLINE EDITOR Nonalcoholic fatty liver disease Autoimmune hemolytic anemia (CMS/HCC HHS/HCC) Encounter for hepatitis C virus screening test for high risk patient COLONOSCOPY Routine OFFLINE EDITOR from Last 3 Months or Most Recently Relevant to Health Maintenance Results * US RETROPERITONEAL COMP (04/22/2024 2:13 PM OFFLINE EDITOR) Anatomical Region Laterality Modality Abdomen Ultrasound 04/22/2024 2:46 PM OFFLINE EDITOR Impressions 04/22/2024 2:50 PM OFFLINE EDITOR IMPRESSION: Iso-echo kidneys can be from the RASHIDA or be normal variant. No hydronephrosis. No renal atrophy. Incomplete bladder emptying. Ordered By: ROSALBA THOMAS Interpreted By: Modesto Lewis MD, 04/22/2024 2:46 PM Narrative 04/22/2024 2:50 PM OFFLINE EDITOR [address] [place] [address] Examination: Retroperitoneal ultrasound. Exam date: 04/22/2024 Clinical history: Acute kidney insufficiency/injury from cortical or tubular necrosis Comparison: CT 01/02/2024 Technique: Sonographic evaluation of the retroperitoneum, including both kidneys and the urinary bladder, was performed utilizing grayscale and color Doppler technique. Findings: RIGHT KIDNEY: The right kidney measures 12 ??x 5 ??x 5 cm and demonstrates iso-echogenicity to liver, 1.6 cm cortex thickness, ??and normal color Doppler flow. There is no cyst, mass, echogenic calculus, or hydronephrosis. LEFT KIDNEY: The left kidney measures 11 x 5 x 5.5 cm and demonstrates iso-echogenicity, 1.8 cm cortex thickness, and normal color Doppler flow. There is no cyst, mass, hydronephrosis, or echogenic calculus. URINARY BLADDER: Prevoid bladder volume 480.85 cc. There is no urinary bladder wall thickening. No bladder debris or stone. Bilateral ureteral jets are visualized. Post void bladder volume 134.42 cc. Procedure Note Modesto Lewis MD - 04/22/2024 [facility] [address] [place] [address] Examination: Retroperitoneal ultrasound. Exam date: 04/22/2024 Clinical history: Acute kidney insufficiency/injury from cortical ortubular necrosis Comparison: CT 01/02/2024 Technique: Sonographic evaluation of the retroperitoneum, including bothkidneys and the urinary bladder, was performed utilizing grayscale andcolor Doppler technique. Findings: RIGHT KIDNEY: The right kidney measures 12 x 5 x 5 cm and demonstratesiso-echogenicity to liver, 1.6 cm cortex thickness, and normal colorDoppler flow. There is no cyst, mass, echogenic calculus, or hydronephrosis. LEFT KIDNEY: The left kidney measures 11 x 5 x 5.5 cm and demonstratesiso-echogenicity, 1.8 cm cortex thickness, and normal color Doppler flow. There is no cyst, mass, hydronephrosis, or echogenic calculus. URINARY BLADDER: Prevoid bladder volume 480.85 cc. There is no urinary bladder wall thickening. No bladder debris or stone. Bilateral ureteral jets are visualized. Post void bladder volume 134.42 cc. IMPRESSION: Iso-echo kidneys can be from the RASHIDA or be normal variant. No hydronephrosis. No renal atrophy. Incomplete bladder emptying. Ordered By: ROSALBA THOMAS Interpreted By: Modesto Lewis MD, 04/22/2024 2:46 PM us Rosalba Thomas MD ULTRASOUND Final Resu lt * (ABNORMAL) URINALYSIS (04/22/2024 2:12 PM OFFLINE EDITOR) COLOR (U) YELLOW 04/22/2024 2:37 PM OFFLINE EDITOR [facility] TRANSPARENCY CLEAR 04/22/2024 2:37 PM OFFLINE EDITOR [facility] SPECIFIC GRAVITY (U) 1.010 1.000 - 1.025 04/22/2024 2:37 PM OFFLINE EDITOR [facility] U PH 5.5 5.0 - 8.0 04/22/2024 2:37 PM OFFLINE EDITOR [facility] LEUKOCYTES (U) 1+(A) NEGATIVE 04/22/2024 2:37 PM OFFLINE EDITOR [facility] NITRITES NEGATIVE NEGATIVE 04/22/2024 2:37 PM OFFLINE EDITOR [facility] PROTEIN RANDOM (U) NEGATIVE NEGATIVE 04/22/2024 2:37 PM OFFLINE EDITOR [facility] GLUCOSE (U) NEGATIVE NEGATIVE 04/22/2024 2:37 PM OFFLINE EDITOR [facility] KETONES MG/DL (U) NEGATIVE NEGATIVE 04/22/2024 2:37 PM OFFLINE EDITOR [facility] UROBILINOGEN 0.2 <1.0 EU/DL 04/22/2024 2:37 PM OFFLINE EDITOR [facility] BILIRUBIN (U) NEGATIVE NEGATIVE 04/22/2024 2:37 PM OFFLINE EDITOR [facility] BLOOD (U) NEGATIVE NEGATIVE 04/22/2024 2:37 PM OFFLINE EDITOR [facility] WBC/HPF 10-20(A) 0 - 5 /HPF 04/22/2024 2:37 PM OFFLINE EDITOR [facility] RBC/HPF 0-5 0 - 5 /HPF 04/22/2024 2:37 PM OFFLINE EDITOR [facility] EPI/LPF RARE /LPF 04/22/2024 2:37 PM OFFLINE EDITOR [facility] BACTERIA (U) 1+ /HPF 04/22/2024 2:37 PM OFFLINE EDITOR [facility] URINE SPECIMEN OBTAINED BY CLEAN CATCH PROCEDURE / Unknown 04/22/2024 2:12 PM OFFLINE EDITOR us Rosalba Thomas MD URINE ORDERABLES Final Res ult [facility] [address] [email or web address] [address], * URINE BACTERIA CULTURE (04/22/2024 2:12 PM OFFLINE EDITOR) SPEC DESCRIPTION URINE CLEAN CATCH 04/22/2024 2:18 PM OFFLINE EDITOR [facility] SPECIAL REQUESTS NO SPECIAL REQUEST 04/22/2024 2:18 PM OFFLINE EDITOR [facility] CULTURE RESULT FEW CONTAMINANTS 04/06 10:26 AM OFFLINE EDITOR [facility] URINE SPECIMEN OBTAINED BY CLEAN CATCH PROCEDURE / Unknown 04/22/2024 2:12 PM OFFLINE EDITOR 04/22/2024 2:16 PM OFFLINE EDITOR Rosalba Thomas MD MICROBIOLOGY - GENERAL ORD ERABLES Final Result Performing Organization Address [facility]/Va Hospital/ZIP Co de Phone Number [facility] [address] [place] [address], [place] [phone] [facility] [address] [place] [phone], * ALBUMIN CREATININE URINE RANDOM (04/14/2024 2:35 PM OFFLINE EDITOR) ALBUMIN (U) 0.1 MG/DL 04/14/2024 3:02 PM OFFLINE EDITOR [facility] Comment:REFERENCE RANGE NOT ESTABLISHED CREATININE RANDOM (U) <13.0 MG/DL 04/14/2024 3:02 PM OFFLINE EDITOR [facility] Comment:REFERENCE RANGE NOT ESTABLISHED ALBUMIN/CREAT RATIO UNABLE TO CALCULATE <30 MG/G 04/14/2024 3:02 PM OFFLINE EDITOR [facility] Comment: NORMAL TO MILDLY INCREASED ALBUMINURIA: <30 MG/G MODERATELY INCREASED ALBUMINURIA: 30 TO 300 MG/G SEVERELY INCREASED ALBUMINURIA: >300 MG/G PER KDIGO URINE SPECIMEN / Unknown 04/14/2024 2:35 PM OFFLINE EDITOR Jacqueline BAUER URINE ORDERABLES Final Res ult Performing Organization Address City/Va Hospital/ZIP Co de Phone Number [facility] [address] [place] [address], [place] [phone] * (ABNORMAL) HEMOGLOBIN, GLYCOSYLATED (04/14/2024 2:33 PM OFFLINE EDITOR) HGB A1C 6.2(H) <5.7 % 04/15/2024 3:05 PM OFFLINE EDITOR [facility] ESTIMATED AVG GLUCOSE 131(H) 74 - 114 MG/DL 04/15/2024 3:05 PM OFFLINE EDITOR [facility] 04/14/2024 2:33 PM OFFLINE EDITOR Jacqueline BAUER LABORATORY Final Resu lt Performing Organization Address City/Va Hospital/ZIP Co de Phone Number [facility] [address] [place] [address], [place] [phone] * (ABNORMAL) IRON SATURATION PNL (FE/TIBC/SAT) (04/14/2024 2:33 PM OFFLINE EDITOR) Pathologist [facility] IRON 27(L) 50 - 170 MCG/DL 04/14/2024 3:16 PM OFFLINE EDITOR [facility] IRON BINDING CAPACITY 343 250 - 450 MCG/DL 04/14/2024 3:16 PM OFFLINE EDITOR [facility] IRON SATURATION 8 % 3:16 PM OFFLINE EDITOR [facility] Comment:REFERENCE RANGE NOT ESTABLISHED 04/14/2024 2:33 PM OFFLINE EDITOR Tom Kwon MD LABORATORY Final Result [facility] [address] [place] [address], [place] [phone] * LIPID PANEL (04/14/2024 2:33 PM OFFLINE EDITOR) CHOLESTEROL 177 MG/DL 04/15/2024 2:09 PM OFFLINE EDITOR [facility] Comment:DESIRABLE: <200 TRIGLYCERIDES 124 MG/DL 04/15/2024 2:09 PM OFFLINE EDITOR [facility] Comment:<150 NORMAL HDL 78 >49 MG/DL 04/15/2024 2:09 PM OFFLINE EDITOR [facility] LDL-C 74 MG/DL 04/15/2024 2:09 PM OFFLINE EDITOR [facility] Comment:<100 OPTIMAL VLDL CALCULATION 25 MG/DL 04/15/19 25 2:09 PM OFFLINE EDITOR [facility] Comment:REFERENCE RANGE NOT ESTABLISHED CHOL/HDL RATIO 2.3 04/15/2024 2:09 PM OFFLINE EDITOR [facility] Comment:REFERENCE RANGE NOT ESTABLISHED LDL/HDL 1.0 04/15/2024 2:09 PM OFFLINE EDITOR [facility] Comment:REFERENCE RANGE NOT ESTABLISHED NON HDL CHOLESTEROL 99 MG/DL 04/15/2024 2:09 PM [facility] Comment:REFERENCE RANGE NOT ESTABLISHED 04/14/2024 2:33 PM OFFLINE EDITOR us Jacqueline RYAN LABORATORY Final Resu lt [facility] [address] [place] [address], [phone] * (ABNORMAL) CBC W/DIFF AUTOMATED (04/14/2024 2:33 PM OFFLINE EDITOR) WBC 11.44(H) 4.00 - 10.80 x10'3/uL 04/14/2024 2:43 PM OFFLINE EDITOR [facility] RBC 3.73(L) 4.10 - 5.40 x10'6/uL 04/14/2024 2:43 PM [facility] HGB 11.3(L) 12.0 - 16.0 G/DL 04/14/2024 2:43 PM [facility] HCT 33.7(L) 36.0 - 47.0 % 04/14/2024 2:43 PM [facility] MCV 90.3 78.0 - 100.0 FL 04/14/2024 2:43 PM [facility] MCH 30.3 27.0 - 31.0 PG 04/14/2024 2:43 PM [facility] MCHC 33.5 33.0 - 36.0 G/DL 04/14/2024 2:43 PM [facility] RDW 14.5 11.5 - 14.5 % 04/14/2024 2:43 PM [facility] PLT 651(H) 150 - 350 x10'3/uL 04/14/2024 2:43 PM [facility] MPV 8.5 7.4 - 10.4 FL 04/14/2024 2:43 PM [facility] CBC COMMENT NORMAL REFERENCE RANGE NOT ESTABLISHED FOR THE PROPORTIONAL LEUKOCYTE DIFFERENTIAL. 04/14/2024 2:43 PM [facility] NEUTROPHILS % 48.3 % 04/14/2024 2:43 PM [facility] LYMPHOCYTES % 35.8 % 04/14/2024 2:43 PM [facility] MONOCYTES % 12.0 % 04/14/2024 2:43 PM [facility] EOSINOPHILS % 2.6 % 04/14/2024 2:43 PM [facility] BASOPHILS % 1.1 % 04/14/2024 2:43 PM [facility] IMMATURE GRANS % 0.2 % 04/14/19 2:43 PM [facility] NRBC % 0.0 % 04/14/2024 2:43 PM [facility] ABS. NEUTROPHILS 5.53 1.60 - 8.30 x10'3/uL 04/14/2024 2:43 PM [facility] ABS. LYMPHOCYTES 4.09 0.80 - 4.70 x10'3/uL 04/14/2024 2:43 PM [facility] ABS. MONOCYTES 1.37 0.00 - 1.50 x10'3/uL 04/14/2024 2:43 PM [facility] ABS. EOSINOPHILS 0.30 0.00 - 0.40 x10'3/uL 04/14/2024 2:43 PM [facility] ABS. BASOPHILS 0.13 0.00 - 0.20 x10'3/uL 04/14/2024 2:43 PM OFFLINE EDITOR [facility] ABS. IMMATURE GRANULOCYTES 0.02 0.00 - 0.03 x10'3/uL 04/14/2024 2:43 PM OFFLINE EDITOR [facility] ABS. NUCLEATED RBC'S 0.00 0.00 - 0.01 x10'3/uL 04/14/2024 2:43 PM OFFLINE EDITOR [facility] 04/14/2024 2:33 PM OFFLINE EDITOR us Tom Kwon MD LABORATORY Final Result Performing Organization Address City/Va Hospital/[place] [address], [place] [phone] * FERRITIN (04/14/2024 2:33 PM OFFLINE EDITOR) FERRITIN 80.0 8 - 252 NG/ML 04/14/2024 3:37 PM OFFLINE EDITOR [facility] 04/14/2024 2:33 PM OFFLINE EDITOR us Tom Kwon MD LABORATORY Final Result Performing Organization Address [facility] Hospital/[facility] Co de Phone Number [facility] [address] [place] [address], [place] [phone] * MG DIAG W JABARI RT DIGI (04/22/2023 1:53 PM OFFLINE EDITOR) Anatomical Region Laterality Modality Breast Right Mammography, Rad iographic Imaging 04/22/2023 1:59 PM OFFLINE EDITOR Narrative 04/22/2023 2:04 PM OFFLINE EDITOR Examination: Digital right diagnostic mammogram with CAD. [id number] Clinical history: Follow-up, abnormal screening mammogram. History of breast cysts. Comparison: 03/12/2023. Technique: True lateral and spot compression CC and MLO right digital mammograms. The exam was interpreted with the use of a computer-aided detection (CAD) system. Additional 3-D Tomosynthesis images were acquired. Tissue density: ??The breast tissue contains scattered fibroglandular densities. Findings: The patient returned for additional diagnostic imaging to further evaluate the lower inner quadrant mass identified at screening. The additional views confirm the presence of the finding which lies near the 4:00 position projecting approximately 4 cm deep to the nipple on the true lateral view. It is best appreciated on MLO spot compression tomosynthesis appearing ovoid and smoothly marginated measuring approximately 7 x 5 mm. There is no associated architectural distortion or microcalcification. Examination: Right breast ultrasound. Technique:Grayscale and color Doppler images. Findings: Evaluation at the 4:00 periareolar distribution demonstrates a 5 x 5 x 4 mm benign complicated cyst judged concordant with the mammographic finding. [place] appearing tissue architecture is otherwise demonstrated. No other sonographically discrete finding is identified. No sonographically suspicious abnormality is identified. Findings were confirmed on real-time scanning while I was present. Based on these findings, follow-up in March 2024 for resumption of routine mammographic screening would now seem adequate. These findings were discussed with the patient. IMPRESSION: Mass identified at screening is a benign cyst. No mammographically or sonographically suspicious abnormality is identified. Resumption of routine mammographic screening in March 2024 would now seem adequate. Recommendation: 1: Routine screening mammogram ??Bilateral ?? in March 2024 Overall assessment: ACR BI-RADS Category 2 - Benign. Return for Routine Follow-Up: Yes Ordered By: JACQUELINE CABRERA Interpreted By: Dario Vincent MD, 04/22/2023 1:59 PM Jacqueline Cabrera APNP MAMMO Final Resu lt * HEPATITIS C ANTIBODY (02/24/2022 2:53 PM OFFLINE EDITOR) HEPATITIS C AB NON-REACTI VE NON-REACT JEVON 02/25/2022 1:[address] [facility] Comment: ANTIBODIES TO HCV NOT DETECTED. DOES NOT EXCLUDE THE POSSIBILITY OF EXPOSURE TO HCV. 02/24/2022 2:53 PM OFFLINE EDITOR Cindy Wilkerson MD LABORATORY Final Result [facility] [address] [place] [address], [id number] * Colonoscopy ( OFFLINE EDITOR) Narrative [employer] TO EPIC CONVERSION - OFFLINE EDITOR Documented hx of procedure Procedure Note Darrius Mohan MD - 02/07/2018 Documented hx of procedure Generic Rodney Mohan MD GI PROCEDURE ORDERABLES Final Result Performing Organization Address City/State/[facility] Co de Phone Number [employer] TO EPIC CONVERSION from Last 3 Months or Most Recently Relevant to Health Maintenance Insurance MEDIC[employer] Address: ATTN CLAIMS [address] [place] [id number] MEDICARE [facility] BLUE [facility] Advance Directives * Full Code (Latest Code Status on File) Date Activated Date Inactivated Comments 01/02/2024 4:13 PM 01/05/2024 11:39 AM 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
--- OUTSIDE RECORDS SUMMARY | 2024-05-06 10:48 | XMS_ITS | Data Portability ---
Author Organization 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 -Acute kidney injury with unknown chronic kidney disease Baseline serum creatinine ranges between 1.1-1.2 however on patient's most recent serum creatinine level is elevated ranging between 1.5-1.6 since January 2024 She has been having multiple urinary tract infection she is also currently on Lasix 40 mg p.o. daily Patient appears to be euvolemic on examination Patient states that she has not been keeping herself adequately hydrated She was advised on adequate hydration Will reduce the dosage of furosemide to 20 mg daily Will repeat renal function panel will also check LEXUS, ANCA, serum immunofixation as well as complement levels in 4 to 6 weeks She denies taking any NSAIDs. Check a urine microalbumin/creat inine ratio along with a renal ultrasound -Frequent urinary tract infection Patient was advised on adequate hydration and we will also schedule the patient for a renal ultrasound to rule out increased postvoid residual Advised on taking vitamin C daily 3 infections over the past 6 months-treated with ciprofloxacin, Augmentin as well as nitrofurantoin and Bactrim methenamine hippurate is 1 g orally twice daily-would be a reasonable option if she continues to have UTIs. -Hypertension Blood pressure in the office today is under good control Continue patient on current medications. She is also currently on amlodipine 5 mg p.o. daily. -CKD/MBD Will check a calcium and phosphorus levels. KDIGO recommendations to prevent CKD progression -Advised to undertake moderate-intensity physical activity for a cumulative duration of at least 150 minutes per week, or to a level compatible with their cardiovascular and physical tolerance -Patients should consume a balanced, healthy diet that is high in vegetables, , plant-based proteins, unsaturated fats, and lower in processed meats, refined carbohydrates, and sweetened beverages. -Sodium (<2 g/day) and protein intake (0.8 g/kg/day) in accordance with recommendations for the general population. - Suggest NOT to prescribe bisphosphonate treatment in people with GFR <30 ml/min/1.73 m2 (GFR categories G4-G5) without a strong clinical rationale. -Individualize Hba1c target goal of 6.5 to 8 % based on underlying comorbidities -Cessation of tobacco -Avoid Nephrotoxic agents -such as NSAIDS -renal dosage of all medications to the appropriate GFR -Labs in 1 month -RFP, CBC, UA ,Urine microalbumin/cr ratio ,LEXUS,ANCA,C3,C4,Im munofixation ,urien eosinophills follow up in 4-6 wks Schedule -Renal u/s -Chris with CKD - ron Not available 04/14/2024 16:49:40 Plan of Treatment Reminders Order Date Submit Date Provider Last Modified By Organization Details Last Modified Time Details Appointments Establish ed Patient 15.EST 2024 10:45A M Salma Bai Not available Not available Not available Lab None recorded. Referral None recorded. Procedures None recorded. Surgeries None recorded. Imaging None recorded. Medication Orders None recorded. Patient TargetsNo targets recorded. Patient InstructionsNo instructions recorded. Reason for Referral None Reported. Results Created Date Observation Date Name Description Value Unit Range Abnormal Flag Note LastModifiedBy Organization Detail LastModifiedTime 04/29/1904/29/2024 US anna elton Friedman observ ation record ed. ron Not Available 04/07 14:57:32 Result Notes None recorded. Problems Name Problem SNOMED Code Status Onset Date Resolution Date Notes Provider Name and Address Organization Details Recorded Time Chronic kidney disease stage 3A 791562257 Active 2024 [facility] 14:[facility]:26 Acute kidney injury 94736358 Active 2024 Rosalba Garcia MD [address] [place] [address], [address] , [place] [facility] 5 16:50:11 Urinary symptoms 944367866 Active 2024 Jose Maria Rossi null, [facility] 5 13:06:31 Urinary tract infectious disease 34692046 Active 2024 [facility] 12[facility]00 Problem Notes None recorded. Procedures Surgical History None recorded. Imaging Results Imaging Date Name Status LastModified by Organiz ation Details LastModified Time 04/29/2024 US, kidney completed ron Information n ot available 05/02/2024 14:57:32 Procedure Notes None recorded. Medical Equipment None Reported. Allergies Allergen ID Allergen Name Allergen Category Reaction Reaction Severity Criticality Documentation Date Start Date Code Code System Note Provider Name and Address Organization Details Recorded Time [id number] 2524206a8 2824e black pepper preparati on food,medi cation Not available Not available Not available 05/04/20232012 70160 4 RxNorm Comme nt: Black Peppe r ; Not Available Not Available Not Available [id number] 2824e pseudoeph edrine hydrochlo ride medicatio n Not available Not available Not available 05/04/20232012 47744 RxNorm Not Available Not Available Not Available [id number] [id number] [id number] 2824e Biaxin medicatio n Not available Not available Not available 05/04/20232012 29659 9 RxNorm Comme nt: Other Stephen clayton ns: BERTIN SQUIRES 2012 11:31 AM MULTI PLE FOOD ALLER GIES; ; Not Available Not Available Not Available [id number] [id number] 2440891z5 2824e shellfish derived food,medi cation Not available Not available Not available 05/04/20232012 86902 UNK Comme nt: Seafo od ; Not Available Not Available Not Available [id number] [id number] 2824e banana extract food,medi cation Not available Not available Not available 05/04/20232012 02267 9 RxNorm Comme nt: Banan as ; Not Available Not Available Not Available Medications Name Sig Start Date Stop Date Status Note LastModified by Organization Details LastModified Time furosemide 40 mg tablet Take 1 tablet every day by oral route. active Not Available Not Available No t Available cetirizine 10 mg tablet Take 1 tablet every day by oral route. active Not Available Not Available No t Available lovastatin 40 mg tablet Take 1 tablet every day by oral route. active Not Available Not Available No t Available amlodipine 5 mg tablet Take 1 tablet every day by oral route. active Not Available Not Available No t Available allopurinol 100 mg tablet Take 1 tablet twice a day by oral route. active Not Available Not Available No t Available ciprofloxac in 500 mg tablet Take 1 tablet every 12 hours by oral route for 5 days, for UTI. 2024 active Not Available Not Available Not Avai lable sulfamethox azole 800 mg-trimetho prim 160 mg tablet TAKE 1 TABLET BY MOUTH TWICE DAILY 04/14 completed Not Available Not Available Not Available aspirin 81 mg tablet,vignesh yed release Take 1 tablet every day by oral route. active Not Available Not Available No t Available cephalexin 500 mg capsule TAKE 1 CAPSULE BY MOUTH FOUR TIMES DAILY 04/14 completed Not Available Not Available Not Available pantoprazol e 40 mg tablet,vignesh yed release Take 1 tablet every day by oral route. active Not Available Not Available No t Available nitrofurant oin macrocrysta l 100 mg capsule TAKE 1 CAPSULE BY MOUTH EVERY 12 HOURS 04/14 completed Not Available Not Available Not Available triamcinolo ne acetonide 0.1 % topical ointment APPLY TOPICALLY TO THE AFFECTED AREA TWICE DAILY active Not Available Not Available No t Available glimepiride 4 mg tablet Take 1 tablet every day by oral route. active Not Available Not Available No t Available folic acid 1 mg tablet TAKE 1 TABLET BY MOUTH DAILY active Not Available Not Available No t Available montelukast 10 mg tablet Take 1 tablet every day by oral route. active Not Available Not Available No t Available albuterol sulfate HFA 90 mcg/actuati on aerosol inhaler INHALE 2 PUFFS BY MOUTH EVERY 4 HOURS NEEDED active Not Available Not Available No t Available pioglitazon e 30 mg tablet TAKE 1 TABLET BY MOUTH DAILY active Not Available Not Available No t Available amoxicillin 875 mg-vidhya oakes clavulanate 125 mg tablet TAKE 1 TABLET BY MOUTH TWICE DAILY 04/14 completed Not Available Not Available Not Available metformin ER 1,000 mg tablet,exte nded release 24 hr Take by oral route. active Not Available Not Available No t Available Trulicity 0.75 mg/0.5 mL subcutaneou s pen injector INJECT 0.75 MG UNDER THE SKIN ONCE WEEKLY active Not Available Not Available No t Available triamcinolo ne 0.1 % topical ointment and dimethicone 5 % topical cream active Not Available Not Available Not Available Vitals Date Recorded Body height Provider Name an d Address Organization Details Last Updated DateTime 04/14/2024 160.02 cm Park Joyner [facility] 04/14/2024 16:09:07 Date Recorded Oxygen saturation Oxygen saturation in Arterial blood by Pulse oximetry Provider Name and Address Organization Details Last Updated DateTime 04/14/2024 98 % 98 % [facility] 04/14/2024 16:10:46 Date Recorded Heart rate Provider Name an d Address Organization Details Last Updated DateTime 04/14/2024 76 /min Park Joyner [facility] 04/14/2024 16:10:56 Date Recorded Systolic blood pressure Diastolic blood pressure Provider Name and Address Organization Details Last Updated DateTime 04/14/2024 112 mm[Hg] 58 mm[Hg] Park Joyner [facility] 04/14/2024 16:12:20 Social History Question Answer Notes LastModified by Organizat ion Details LastModified Time Tobacco Smoking Status Former Smoker Park Joyner [facility] 04/14/2024 16:13:01 What Is Your Level Of Alcohol Consumption? None [email or web address] Information not available 04/14/2024 When Did You Quit Smoking? 30 Years Ago [email or web address] Information not available 04/14/2024 Do You Use Any Illicit Or Recreational Drugs? No [email or web address] Information not available 04/14/2024 Sex: Unknown Functional Status None recorded. Mental Status None recorded. Family History Nothing Reported. Medical History No medical history recorded. Gynecological HistoryNo gynecological history recorded. Obstetrics History GPAL:G 0 P 0 0 0 0 Past Encounters Encounter ID Performer Location Encounter Start Date Encounter Closed Date Diagnosis/Indication Diagnosis SNOMED-CT Code Diagnosis ICD10 Code Diagnosis Note [id number] Rosalba Garcia MD [facility] Nephrolog ([place]) [address] [place] [address] 04/14/2024 15:43:32 04/14/2024 16:41:50 Chronic kidney disease stage 3A 390099706 N18.31 Acute kidney injury 1466 9001 N17.9 Health Concerns Section Related Observation LastModified by Organization Detai ls LastModified Time None Recorded Concern Status LastModified by Organization Details LastModified Time None Recorded Advance Directives Directive None Recorded Payers None recorded. 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 She denies having any chest pain, shortness breath or palpitation Denies having any lightheadedness or dizzinessDenies having any nausea, vomiting or diarrheaPatient has been having multiple urinary tract infections has recently been on Augmentin, nitrofurantoin as well as Bactrim however she was not allergic to Bactrim and and had a skin rash She is accompanied by her to the clinic appointment today. Social hx-retired,marriedFam [facility] hx -No hx of CKD or ESRD Rosalba Garcia MD [address] [facility], [place], [address], [facility] 04/14/2024 16:51:19 OBGyn Episode No OBEpisode recorded.
--- OUTSIDE RECORDS SUMMARY | 2024-05-06 10:48 | XMS_ITS | Referral Summary ---
Author Organization [facility] [employer] Address [address] [place] [address] Care Team Providers Care Release And Technical Records Clerk Name Role Phone Cachorro Alvarez MD Primary Care Provider [phone] Source Comments [facility] [employer],non-owned Affiliates and Associated Physician Practices is amultiple site organization consisting of ambulatory clinics and hospital sitesin [place], [place], [place] and [place]. This disclosure is being madepursuant to the Care Everywhere program and may not contain all information available regarding this patient. Last updated 17.[facility] [employer] Allergies No known active allergies Medications * [...] fluticasone propionate (Flonase) 50 MCG/ACT nasal spray [place] 2 (two) sprays into each nostril once [...] Description 08/25/2024 12:00 PM CDT Office Visit [facility] - GI [address] [facility], [place] [id number] Cindy Wilkerson MD [address] [place] [address] Goals Goal Patient Goal Type Associated Problems [...] prior to your last dose Care Teams Release And Technical Records Clerk Relationship Specialty Start Date End Date Cachorro Alvarez MD [address] [place] [address] PCP - General 11/28/21
[2024-05-06 11:09] VITALS: BP 139/50; PULSE 86; RESP 18; TEMP 36.1; O2SAT 96
[2024-05-06] MEDS: diphenhydrAMINE HCl CAP 25 MG CAPSULE PO (11:40)
[2024-05-06] MEDS: IRON SUCROSE COMPLEX 200 MG, IRON SUCROSE COMPLEX 100 MG in SODIUM CHLORIDE 0.9% IV 235 ML 125 MG IVPB (12:04)
[2024-05-06 14:17] VITALS: BMI 40.8
== END 2024-05-06 10:40 | disposition home or self-care (01) ==
PROVIDERS: Visit Provider Internal Medicine Hematology & Oncology
DX: D50.9 Iron deficiency anemia, unspecified (principal)
CPT/HCPCS: 96365; 96366; 96367; A9270; J1756; J7050

== ENCOUNTER 2024-05-13 09:16 | Outpatient (CLI) | payer MEDICARE, SELFPAY ==
--- OUTSIDE RECORDS SUMMARY | 2024-05-13 09:47 | XMS_ITS | Data Portability ---
Author Organization [facility], [address] [place] [address] Neurology ([place]) Address [address] [place] [address] [address] [place] [address] Care Team Providers Care Chiropractic Physician Name Role Phone [facility] Primary Care Provider ROSALBA GARCIA Band Splitter Assessment Encounter Date Assessment Date Assessment LastModified [...] Recorded Time Chronic kidney disease stage 3A 518659057 Active 2024 Park [facility] 5 14:22:26 Acute kidney injury 35202961 Active 2024 Rosalba Garcia MD [address] [place] [address], [address] , [place] [facility] 5 16:50:11 Urinary symptoms 781092082 Active 2024 Jose [facility] 5 13:06:31 Urinary tract infectious disease 96933763 Active 2024 Park Ar [facility] 5 12:56:00 Problem Notes None recorded. [...] Name and Address Organization Details Recorded Time 825517 black pepper preparati on food,medi cation Not available Not available Not available 05/04/20232012 68022 4 RxNorm Comme nt: Black Peppe r ; Not Available Not Available Not Available 684049 pseudoeph edrine hydrochlo ride medicatio n Not available Not available Not available 05/04/20232012 83450 RxNorm Not Available Not Available Not Available 352500 Biaxin medicatio n Not available Not available Not available 05/04/20232012 09266 9 RxNorm Comme nt: Other Stephen clayton ns: BERTIN SQUIRES 2012 11:31 AM MULTI PLE FOOD ALLER GIES; ; Not Available Not Available Not Available 462670 shellfish derived food,medi cation Not available Not available Not available 05/04/20232012 90214 UNK Comme nt: Seafo od ; Not Available Not Available Not Available 866832 banana extract food,medi cation Not available Not available Not available 05/04/20232012 92002 9 RxNorm Comme nt: Gabe as ; Not Available Not Available Not [...] Not Available Vitals Date Recorded Body height Oxygen saturation Oxygen saturation in Arterial blood by Pulse oximetry Heart rate Systolic blood pressure Diastolic blood pressure Provider Name and Address Organization Details Last Updated DateTime 160.02 cm 98 % 98 % 76 /min 112 mm[Hg] 58 mm[Hg] Park Joyner [facility] 16:12:20 Social History Question Answer Notes LastModified by Organizat ion Details LastModified Time Tobacco Smoking Status Former Smoker Park Joyner [facility] 04/14/2024 16:13:01 What Is Your Level Of Alcohol Consumption? None [email or web address] Information not available 04/14/2024 When Did You Quit Smoking? 30 Years Ago [email or web address] Information not available 04/14/2024 Do You Use Any Illicit Or Recreational Drugs? No [email or web address] Information not available 04/14/2024 Sex: Unknown Functional Status None recorded. Mental Status None recorded. Family History Nothing Reported. Medical History No medical history recorded. Gynecological HistoryNo gynecological history recorded. Obstetrics History GPAL:G 0 P 0 0 0 0 Past Encounters Encounter ID Performer Location Encounter Start Date Encounter Closed Date Diagnosis/Indication Diagnosis SNOMED-CT Code Diagnosis ICD10 Code Diagnosis Note [id number] Rosalba Garcia MD [facility] Nephrolog y ([place]) [address] [address] 04/14/2024 15:43:32 04/14/2024 16:41:50 Chronic kidney disease stage 3A 619764314 N18.31 Acute kidney injury 1466 9001 N17.9 [...] to the clinic appointment today. 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
--- OUTSIDE RECORDS SUMMARY | 2024-05-13 09:47 | XMS_ITS | Encounter Summary ---
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 [address] [place] [address] Angelika Bashir MD [address] [place] [address] documented as of this encounter Visit Diagnoses Not on filedocumented in this encounter Additional Health Concerns Infection Onset Date Last Indicated Resolved Time COVID-19 Rule Out 01/02/2024 01/02/2024 01/02/2024 3:07 PM CDT documented as of this encounter Care Teams Clinical Education Coordinator Relationship Specialty Start Date End Date Esequiel Smiley MD [address] [place] [address] PCP - General FAMILY PRACTICE 07/08/18 12/13/19 Cachorro Alvarez MD [address] [place] [address] PCP - General FAMILY PRACTICE 12/14/19 01/01/24 Angelika Bashir MD [address] [place] [address] PCP - General FAMILY PRACTICE 01/02/24 documented as of this encounter
--- OUTSIDE RECORDS SUMMARY | 2024-05-13 09:47 | XMS_ITS | Clinical Summary ---
Author Organization [facility] [employer] Address [address] [place] [address] Care Team Providers Care Professional Housing Consultant Name Role Phone Cachorro Alvarez MD Primary Care Provider [phone] Source Comments [facility] [employer],non-owned Affiliates and Associated Physician Practices is amultiple site organization consisting of ambulatory clinics and hospital sitesin [place], [place], [place]. This disclosure is being madepursuant to the Care Everywhere program and may not contain all information available regarding this patient. Last updated 17.[facility] [employer] Allergies No known active allergies Medications * [...] fluticasone propionate (Flonase) 50 MCG/ACT nasal spray [place] 2 (two) sprays into each nostril once [...] 88 08/20/2023 1:39 PM CDT Temperature 36.5 C (97.7 F) 08/20/2023 1:39 PM CDT Respiratory Rate 20 11/28/2021 12:3 8 PM [...] Visit [facility] [address] [facility] [place] [address] Cindy Wilkerson MD [address] [facility] [address] [place] [address] Health Maintenance Due Date Last Done Comments BONE DENSITY TESTING 1950 COLOGUARD (AGES 45-75) - COLON CA SCREENING 1949 COLON MONITORING 1949 COLONOSCOPY - COLON CA SCREENING 1949 CT COLONOGRAPHY - COLON CA SCREENING 1950 Colorectal Cancer Screening 1950 FIT - COLON CA SCREENING 1949 FLEX SIG - COLON CA SCREENING 1950 MEDICARE AWV 12 MONTHS 1950 HIB VACCINE (1 of [...] prior to your last dose Care Teams Professional Housing Consultant Relationship Specialty Start Date End Date Cachorro Alvarez MD [address] [place] [address] PCP - General 11/28/21
--- OUTSIDE RECORDS SUMMARY | 2024-05-13 09:47 | XMS_ITS | Clinical Summary ---
Author Organization [facility] Address [address] [place] [address] Care Team Providers Care Pr Intern Name Role Phone Angelika Bashir MD Primary Care Provider [phone] Allergies Active Allergy Reactions Criticality Noted Date [...] mg total) by mouth daily. 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[facility]) 04/27 Resolved Problems Problem Noted Date Diagnosed Date Resolved Date Hypokalemia 01/04/2024 01/05/2024 Hypoxia 01/02/2024 01/04/2024 Leukocytosis 01/02/2024 01/05/2024 Sepsis ([facility]) 01/02/202404/2023 Acute kidney injury 06/23/2021 06/25/19 22 RUQ pain 07/09/2018 09/01/2018 Deep vein thrombosis of lowe r extremity ([facility] HHS/[facility]) 12/04/2012 07/09/2018 Cellulitis of left leg 11/30/201207/09 Encounter for preventive health examination 11/29/2012 07/09/2018 Encounters Date Type Department Care Team Description 04/22/2024 2:16 PM SPORTS PSYCHOLOGIST - 04/22/2024 11:59 PM SPORTS PSYCHOLOGIST Hospital Encounter [facility] [address] [place] [address] Rosalba Thomas MD Discharge Disposition: Home or Self Care (Routine Discharge) 04/22/2024 1:42 PM SPORTS PSYCHOLOGIST - 04/22/2024 2:15 PM SPORTS PSYCHOLOGIST Hospital Encounter [address] [place] [address] Rosalba Thomas MD Discharge Disposition: Home or Self Care (Routine Discharge) 04/22/2024 Orders Only [address] [place] [address] Rosalba Thomas MD 04/22/2024 Travel 04/14/2024 2:23 PM SPORTS PSYCHOLOGIST - 04/14/2024 11:59 PM SPORTS PSYCHOLOGIST Hospital Encounter [address] [place] [address] Jacqueline Cabrera APNP Discharge Disposition: Home or Self Care (Routine Discharge) 04/14/2024 2:15 PM SPORTS PSYCHOLOGIST - 04/14/2024 2:22 PM SPORTS PSYCHOLOGIST Hospital Encounter [address] [place] [address] Angelika Bashir MD Rao, Krishna A, MD Discharge Disposition: Home or Self Care (Routine Discharge) 04/14/2024 [address] [place] [address] [place] [address] Jacqueline Cabrera APNP 04/14/2024 Orders Only [address] [place] [address] Tom Kwon MD 04/14/2024 Travel from Last 3 Months Immunizations Name Administration Dates Next Due MODERNA COVID-19 (12+) MRNA, LNP-S, PF, 100 MCG/ 0.5 ML DOSE 09/14/2020,2020 Family History Medical History Relation Comments Cancer Brother Diabetes Mother Heart Disease Mother Relation Status Comments Brother Mother Social History Tobacco Use Types Packs/Day Years Used Date Smoking Tobacco: Former Cigarettes 1 965 - 1991 Smokeless Tobacco: Never Tobacco Cessation:Counseling Given: Not Answered Alcohol Use Standard Drinks/Week Comments No 0 (1 standard drink = 0.6 oz pur e alcohol) [facility] Utilities Answer Date Recorded In the past 12 months has th e [employer], gas, oil, or water [employer] threatened to shut off services in your [...] any time in the past 12 m [facility], were you homeless or living in a intermediate (including now)? No 01/02/2024 Comments No Sex and Gender Information Value Date Recorded Sex Assigned at Female 07/09/2018 10:28 AM CDT Legal Sex Female 7:06 PM SPORTS PSYCHOLOGIST Gender Identity Female 07/09/2018 10:28 AM CDT Sexual Orientation Not on file Last Filed Vital Signs Vital Sign Reading Time Taken Comments Blood Pressure 130/55 01/05/2024 4:44 AM CDT Pulse 80 01/05/2024 4:44 AM CDT Temperature 35.7 C (96.3 F) 01/05/2024 4:44 AM CDT Respiratory Rate 18 01/05/2024 4:44 AM CDT Oxygen Saturation 94% 01/05/2024 4:44 AM CDT Inhaled Oxygen Concentration - - Weight 104 kg (229 lb 6 oz) 01/05/2024 4:44 AM C DT Height 160 cm (5' 3 ) 01/02/2024 1:31 PM CDT Body Mass Index 40.63 01/02/2024 1:31 PM CDT Plan of Treatment Upcoming Encounters Date Type Department Care Team (Late st Contact Info) Description 05/18/2024 9:00 AM SPORTS PSYCHOLOGIST Appointment [facility] [address] [place] [address] Angelika Bashir MD [address] [place] [address] Health Maintenance Due Date Last Done Comments [...] 2014 Dexa Scan (General) 2014 COVID-19 Vaccine ( season) 2023 09/14/2020, 2020 Influenza Adult (#1) [...] Associated Problems Recent Progress Patient-Stated? Author Safety Patient/family will have appropriate support at home upon discharge General No Janae Ruiz, RICHARD Procedures Procedure Name Priority Date/Time Associated Diagnosis Comments US RETROPERITONEAL COMP Routine 04/22/19 2:13 PM SPORTS PSYCHOLOGIST RASHIDA (acute kidney injury) ([facility]) URINE BACTERIA CULTURE Routine 2:12 PM SPORTS PSYCHOLOGIST Unspecified symptoms and signs involving the genitourinary system HC URINALYSIS AUTO W/MICRO Routine 04/22/2024 2:12 PM SPORTS PSYCHOLOGIST Unspecified symptoms and signs involving the genitourinary system ALBUMIN URINE RANDOM W/CREATININE Routine 04/14/2024 2:35 PM SPORTS PSYCHOLOGIST Mixed hyperlipidemia Type 2 diabetes mellitus not at goal ([facility] HHS/HCC) HEMOGLOBIN, GLYCOSYLATED Routine 04/14/2024 2:33 PM SPORTS PSYCHOLOGIST Mixed hyperlipidemia Type 2 diabetes mellitus not at goal ([facility] HHS/HCC) LIPID PANEL Routine 04/14/2024 2:33 PM SPORTS PSYCHOLOGIST Mixed hyperlipidemia Type 2 diabetes mellitus not at goal ([facility] HHS/HCC) FERRITIN Routine 04/14/2024 2:33 PM SPORTS PSYCHOLOGIST Anemia, iron deficiency IRON SAT PANEL (IRON,IBC,%SAT) Routine 04/14/2024 2:33 PM SPORTS PSYCHOLOGIST Anemia, iron deficiency CBC W/DIFF AUTOMATED Routine 04/14/2024 2:33 PM SPORTS PSYCHOLOGIST Anemia, iron deficiency MG DIAG W JABARI RT DIGI Routine 1:53 PM SPORTS PSYCHOLOGIST Abnormal breast finding HEPATITIS C ANTIBODY Routine 02/24/2022 2:53 PM SPORTS PSYCHOLOGIST Nonalcoholic fatty liver disease Autoimmune hemolytic anemia (CMS/HCC HHS/HCC) Encounter for hepatitis C virus screening test for high risk patient COLONOSCOPY Routine SPORTS PSYCHOLOGIST from Last 3 Months or Most Recently Relevant to Health Maintenance Results * US RETROPERITONEAL COMP (04/22/2024 2:13 PM SPORTS PSYCHOLOGIST) Anatomical Region Laterality Modality Abdomen Ultrasound 04/22/2024 2:46 PM SPORTS PSYCHOLOGIST Impressions 04/22/2024 2:50 PM SPORTS PSYCHOLOGIST IMPRESSION: Iso-echo kidneys can be from the RASHIDA or be normal variant. No hydronephrosis. No renal atrophy. Incomplete bladder emptying. Ordered By: ROSALBA THOMAS Interpreted By: Modesto Lewis MD, 04/22/2024 2:46 PM Narrative 04/22/2024 2:50 PM SPORTS PSYCHOLOGIST [address] [place] [address] Examination: Retroperitoneal ultrasound. Exam date: 04/22/2024 Clinical history: Acute kidney insufficiency/injury from cortical or tubular necrosis Comparison: CT 01/02/2024 Technique: Sonographic evaluation of the retroperitoneum, including both kidneys and the urinary bladder, was performed utilizing grayscale and color Doppler technique. Findings: RIGHT KIDNEY: The right kidney measures 12 x 5 x 5 cm and demonstrates iso-echogenicity to liver, 1.6 cm cortex thickness, and normal color Doppler [...] Procedure Note Modesto Lewis MD - 04/22/2024 [place] [id number] [facility] [place] [address] Examination: Retroperitoneal ultrasound. Exam date: 04/22/2024 Clinical [...] lt * (ABNORMAL) URINALYSIS (04/22/2024 2:12 PM SPORTS PSYCHOLOGIST) COLOR (U) YELLOW 04/22/2024 2:37 PM SPORTS PSYCHOLOGIST [facility] TRANSPARENCY CLEAR 04/22/2024 2:37 PM SPORTS PSYCHOLOGIST [facility] SPECIFIC GRAVITY (U) 1.010 1.000 - 1.025 04/22/2024 2:37 PM SPORTS PSYCHOLOGIST [facility] U PH 5.5 5.0 - 8.0 04/22/2024 2:37 PM SPORTS PSYCHOLOGIST [facility] LEUKOCYTES (U) 1+(A) NEGATIVE 04/22/2024 2:37 PM SPORTS PSYCHOLOGIST [facility] NITRITES NEGATIVE NEGATIVE 04/22/2024 2:37 PM [facility] PROTEIN RANDOM (U) NEGATIVE NEGATIVE 04/22/2024 2:37 PM [facility] GLUCOSE (U) NEGATIVE NEGATIVE 04/22/2024 2:37 PM SPORTS PSYCHOLOGIST [facility] KETONES MG/DL (U) NEGATIVE NEGATIVE 04/22/2024 2:37 PM SPORTS PSYCHOLOGIST [facility] UROBILINOGEN 0.2 <1.0 EU/DL 04/22/2024 2:37 PM SPORTS PSYCHOLOGIST [facility] BILIRUBIN (U) NEGATIVE NEGATIVE 04/22/2024 2:37 PM [facility] BLOOD (U) NEGATIVE NEGATIVE 04/22/2024 2:37 PM SPORTS PSYCHOLOGIST [facility] WBC/HPF 10-20(A) 0 - 5 /HPF 04/22/2024 2:37 PM SPORTS PSYCHOLOGIST [facility] RBC/HPF 0-5 0 - 5 /HPF 04/22/2024 2:37 PM SPORTS PSYCHOLOGIST [facility] EPI/LPF RARE /LPF 04/22/2024 2:37 PM SPORTS PSYCHOLOGIST [facility] BACTERIA (U) 1+ /HPF 04/22/2024 2:37 PM SPORTS PSYCHOLOGIST [facility] URINE SPECIMEN OBTAINED BY CLEAN CATCH PROCEDURE / Unknown 04/22/2024 2:12 PM SPORTS PSYCHOLOGIST us Rosalba Thomas MD URINE ORDERABLES Final Res ult Performing Organization Address City/[facility]/ZIP Co de Phone Number [facility] [address] [place] [address], * URINE BACTERIA CULTURE (04/22/2024 2:12 PM SPORTS PSYCHOLOGIST) SPEC DESCRIPTION URINE CLEAN CATCH 04/22/2024 2:18 PM SPORTS PSYCHOLOGIST [facility] SPECIAL REQUESTS NO SPECIAL REQUEST 04/22/2024 2:18 PM SPORTS PSYCHOLOGIST [facility] CULTURE RESULT FEW CONTAMINANTS 04/06 10:26 AM SPORTS PSYCHOLOGIST [facility] URINE SPECIMEN OBTAINED BY CLEAN CATCH PROCEDURE / Unknown 04/22/2024 2:12 PM SPORTS PSYCHOLOGIST 04/22/2024 2:16 PM SPORTS PSYCHOLOGIST us Rosalba Thomsa MD MICROBIOLOGY - GENERAL ORD ERABLES Final Result Performing Organization Address [facility] Co de Phone Number [facility] [address] [place] [address], [place] [phone] [facility] [address] [place] [address], [place] [phone] * ALBUMIN CREATININE URINE RANDOM (04/14/2024 2:35 PM SPORTS PSYCHOLOGIST) ALBUMIN (U) 0.1 MG/DL 04/14/2024 3:02 PM SPORTS PSYCHOLOGIST [facility] Comment:REFERENCE RANGE NOT ESTABLISHED CREATININE RANDOM (U) <13.0 MG/DL 04/14/2024 3:02 PM SPORTS PSYCHOLOGIST [facility] Comment:REFERENCE RANGE NOT ESTABLISHED ALBUMIN/CREAT RATIO UNABLE TO CALCULATE <30 MG/G 04/14/2024 3:02 PM SPORTS PSYCHOLOGIST [facility] Comment: NORMAL TO MILDLY INCREASED ALBUMINURIA: <30 MG/G MODERATELY INCREASED ALBUMINURIA: 30 TO 300 MG/G SEVERELY INCREASED ALBUMINURIA: >300 MG/G PER KDIGO URINE SPECIMEN / Unknown 04/14/2024 2:35 PM SPORTS PSYCHOLOGIST Jacqueline BAUER URINE ORDERABLES Final Res ult Performing Organization Address [facility]/ZIP Co de Phone Number [facility] [address] [place] [address], [place] [phone] * (ABNORMAL) HEMOGLOBIN, GLYCOSYLATED (04/14/2024 2:33 PM SPORTS PSYCHOLOGIST) HGB A1C 6.2(H) <5.7 % 04/15/2024 3:05 PM SPORTS PSYCHOLOGIST [facility] ESTIMATED AVG GLUCOSE 131(H) 74 - 114 MG/DL 04/15/2024 3:05 PM SPORTS PSYCHOLOGIST [facility] 04/14/2024 2:33 PM SPORTS PSYCHOLOGIST Jacqueline BAUER LABORATORY Final Resu lt Performing Organization Address [facility] Co de Phone Number [facility] [address] [place] [address], [place] [phone] * (ABNORMAL) IRON SATURATION PNL (FE/TIBC/SAT) (04/14/2024 2:33 PM SPORTS PSYCHOLOGIST) IRON 27(L) 50 - 170 MCG/DL 04/14/2024 3:16 PM SPORTS PSYCHOLOGIST [facility] IRON BINDING CAPACITY 343 250 - 450 MCG/DL 04/14/2024 3:16 PM SPORTS PSYCHOLOGIST [facility] IRON SATURATION 8 % 3:16 PM SPORTS PSYCHOLOGIST [facility] Comment:REFERENCE RANGE NOT ESTABLISHED 04/14/2024 2:33 PM SPORTS PSYCHOLOGIST Tom Kwon MD LABORATORY Final Result Performing Organization Address [facility]/ZIP Co de Phone Number [facility] [address] [place] [address], [place] [phone] * LIPID PANEL (04/14/2024 2:33 PM SPORTS PSYCHOLOGIST) CHOLESTEROL 177 MG/DL 04/15/2024 2:09 PM [facility] Comment:DESIRABLE: <200 TRIGLYCERIDES 124 MG/DL 04/15/2024 2:09 PM [facility] Comment:<150 NORMAL HDL 78 >49 MG/DL 04/15/2024 2:09 PM [facility] LDL-C 74 MG/DL 04/15/2024 2:09 PM SPORTS PSYCHOLOGIST [facility] Comment:<100 OPTIMAL VLDL CALCULATION 25 MG/DL 04/15/19 25 2:09 PM [facility] Comment:REFERENCE RANGE NOT ESTABLISHED CHOL/HDL RATIO 2.3 04/15/2024 2:09 PM [facility] Comment:REFERENCE RANGE NOT ESTABLISHED LDL/HDL 1.0 04/15/2024 2:09 PM [facility] Comment:REFERENCE RANGE NOT ESTABLISHED NON HDL CHOLESTEROL 99 MG/DL 04/15/2024 2:09 PM [facility] Comment:REFERENCE RANGE NOT ESTABLISHED 04/14/2024 2:33 PM SPORTS PSYCHOLOGIST Jacqueline BAUER LABORATORY Final Resu lt [facility] [address] [place] [address], [phone] * (ABNORMAL) CBC W/DIFF AUTOMATED (04/14/2024 2:33 PM SPORTS PSYCHOLOGIST) [facility] WBC 11.44(H) 4.00 - 10.80 x10'3/uL 04/14/2024 2:43 PM SPORTS PSYCHOLOGIST [facility] RBC 3.73(L) 4.10 - 5.40 x10'6/uL 04/14/2024 2:43 PM [facility] HGB 11.3(L) 12.0 - 16.0 G/DL 04/14/2024 2:43 PM SPORTS PSYCHOLOGIST [facility] HCT 33.7(L) 36.0 - 47.0 % 04/14/2024 2:43 PM [facility] MCV 90.3 78.0 - 100.0 FL 04/14/2024 2:43 PM [facility] MCH 30.3 27.0 - 31.0 PG 04/14/2024 2:43 PM [facility] MCHC 33.5 33.0 - 36.0 G/DL 04/14/2024 2:43 PM [facility] RDW 14.5 11.5 - 14.5 % 04/14/2024 2:43 PM [facility] PLT 651(H) 150 - 350 x10'3/uL 04/14/2024 2:43 PM [facility] MPV 8.5 7.4 - 10.4 FL 04/14/2024 2:43 PM [facility] CBC COMMENT NORMAL REFERENCE RANGE NOT ESTABLISHED FOR THE PROPORTIONAL LEUKOCYTE DIFFERENTIAL. 04/14/2024 2:43 PM [facility] NEUTROPHILS % 48.3 % 04/14/2024 2:43 PM [facility] LYMPHOCYTES % 35.8 % 04/14/2024 2:43 PM [facility] MONOCYTES % 12.0 % 04/14/2024 2:43 PM [facility] EOSINOPHILS % 2.6 % 04/14/2024 2:43 PM [facility] BASOPHILS % 1.1 % 04/14/2024 2:43 PM [facility] IMMATURE GRANS % 0.2 % 04/14/19 2:43 PM [facility] NRBC % 0.0 % 04/14/2024 2:43 PM [facility] ABS. NEUTROPHILS 5.53 1.60 - 8.30 x10'3/uL 04/14/2024 2:43 PM [facility] ABS. LYMPHOCYTES 4.09 0.80 - 4.70 x10'3/uL 04/14/2024 2:43 PM [facility] ABS. MONOCYTES 1.37 0.00 - 1.50 x10'3/uL 04/14/2024 2:43 PM SPORTS PSYCHOLOGIST [facility] ABS. EOSINOPHILS 0.30 0.00 - 0.40 x10'3/uL 04/14/2024 2:43 PM SPORTS PSYCHOLOGIST [facility] ABS. BASOPHILS 0.13 0.00 - 0.20 x10'3/uL 04/14/2024 2:43 PM SPORTS PSYCHOLOGIST [facility] ABS. IMMATURE GRANULOCYTES 0.02 0.00 - 0.03 x10'3/uL 04/14/2024 2:43 PM SPORTS PSYCHOLOGIST [facility] ABS. NUCLEATED RBC'S 0.00 0.00 - 0.01 x10'3/uL 04/14/2024 2:43 PM SPORTS PSYCHOLOGIST [facility] 04/14/2024 2:33 PM SPORTS PSYCHOLOGIST us Tom Kwon MD LABORATORY Final Result Performing Organization Address [facility]/ZIP Co de Phone Number [facility] [address] [place] [address], [place] [phone] * FERRITIN (04/14/2024 2:33 PM SPORTS PSYCHOLOGIST) FERRITIN 80.0 8 - 252 NG/ML 04/14/2024 3:37 PM SPORTS PSYCHOLOGIST [facility] 04/14/2024 2:33 PM SPORTS PSYCHOLOGIST us Tom Kwon MD LABORATORY Final Result Performing Organization Address [facility] Co de Phone Number [facility] [address] [place] [address], [place] [phone] * MG DIAG W JABARI RT DIGI (04/22/2023 1:53 PM SPORTS PSYCHOLOGIST) Anatomical Region Laterality Modality Breast Right Mammography, Rad iographic Imaging 04/22/2023 1:59 PM SPORTS PSYCHOLOGIST Narrative 04/22/2023 2:04 PM SPORTS PSYCHOLOGIST Examination: Digital right diagnostic mammogram with CAD. [id number] Clinical history: Follow-up, abnormal screening mammogram. History of breast cysts. Comparison: 03/12/2023. Technique: True lateral and spot compression CC and MLO right digital mammograms. The exam was interpreted with the use of a computer-aided detection (CAD) system. Additional 3-D Tomosynthesis images were acquired. Tissue density: The breast tissue contains scattered fibroglandular densities. Findings: [...] cyst judged concordant with the mammographic finding. [place] appearing tissue architecture is otherwise demonstrated. No [...] seem adequate. Recommendation: 1: Routine screening mammogram Bilateral in March 2024 Overall assessment: ACR BI-RADS Category 2 - Benign. Return for Routine Follow-Up: Yes Ordered By: JACQUELINE CABRERA Interpreted By: Dario Vincent MD, 04/22/2023 1:59 PM us Jacqueline BAUER MAMMO Final Resu lt * HEPATITIS C ANTIBODY (02/24/2022 2:53 PM SPORTS PSYCHOLOGIST) HEPATITIS C AB NON-REACTI VE NON-REACT JEVON 02/25/2022 1:40 PM SPORTS PSYCHOLOGIST [facility] Comment: ANTIBODIES TO HCV NOT DETECTED. DOES NOT EXCLUDE THE POSSIBILITY OF EXPOSURE TO HCV. 02/24/2022 2:53 PM SPORTS PSYCHOLOGIST us Cindy Wilkerson MD LABORATORY Final Result [facility] [address] [place] [address], [phone] * Colonoscopy ( SPORTS PSYCHOLOGIST) Narrative [facility] TO EPIC CONVERSION - SPORTS PSYCHOLOGIST Documented hx of procedure Procedure Note Darrius Freeman MD - 02/07/2018 Documented hx of procedure Generic Conversion Md [facility] PROCEDURE ORDERABLES Final Result [facility] TO EPIC CONVERSION from Last 3 Months or Most Recently Relevant to Health Maintenance Insurance MEDICARE [employer] Address: [facility] [address] [place] [address] MEDICARE [facility] Advance Directives * Full Code (Latest Code Status on File) Date Activated Date Inactivated Comments 01/02/2024 4:13 PM 01/05/2024 11:39 AM Care Teams Pr Intern Relationship Specialty Start Date End Date Angelika Bashir MD [facility] [place] [address] PCP - General FAMILY PRACTICE 01/02/24
--- OUTSIDE RECORDS SUMMARY | 2024-05-13 09:47 | XMS_ITS | Patient Health Summary ---
Author Organization [facility] Address [address] [place] [address] Care Team Providers Care Abstract Maker Name Role Phone Cachorro Alvarez MD Primary Care Provider Note from [facility],non-owned Affiliates and Associated Physician Practices is amultiple site organization consisting of ambulatory clinics and hospital sitesin [place], [place], [place] and [place]. This disclosure is being madepursuant to the Care Everywhere program and may not contain all information available regarding this patient. Last updated 17.[facility] [employer] Allergies No known active allergies Medications * [...] propionate (Flonase) 50 MCG/ACT nasal spray(Started 10/24/2021) [place] 2 (two) sprays into each nostril once [...] (ABNORMAL) HEMOGLOBIN A1C (08/20/2023 2:42 PM CDT) [facility] Hemoglobin A1c 6.6(H) <=5.6 % 08/21/2023 9:06 AM T [facility] Estimated Average Glucose 143 mg/dL 08/21/2023 9:06 AM T [facility] Comment: HbA1c Interpretation: Normal : < 5.7% Pre-diabetes: 5.7-6.4% Diabetes: Equal to or greater than 6.5% Test results diagnostic of diabetes should be repeated for confirmation. Treatment target values recommended by ADA and other clinical organizations should be used to evaluate metabolic control in patients. Reference: [place] [employer], Standards of Care in Diabetes -2020 In patients 70 years and older consider HbA1c target range of 7.0-7.5% (Reference: Kai Robb, et al. JAMDA. 2012) The Sebia assay for the measurement of HbA1c is a National Glycohemoglobin Standardization Program (NGSP) certified method. Blood BLOOD SPECIMEN / Unknown Lab Venipuncture / Unknown 08/20/2023 2:42 PM CDT 08/20/2023 2:54 PM CDT Cindy Wilkerson MD LAB - CHEMISTRY JAMEL GAUTHIER [address] [address], [facility] [phone] * (ABNORMAL) CBC W/ DIFFERENTIAL (08/20/2023 2:42 PM CDT) [facility] WBC 11.2(H) 4.0 - 10.7 x10E9/L 08/20/2023 3:00 PM CDT [facility] RBC Count 3.93 3.90 - 5.20 x10E12/L 08/20/2023 3:00 PM CDT [facility] Hemoglobin 11.9 11.9 - 15.8 g/dL 08/20/2023 3:00 PM CDT [facility] Hematocrit 35.8 34.8 - 46.1 % 08/20/2023 3:00 PM [facility] MCV 91.1 80.0 - 98.0 fL 08/20/2023 3:00 PM [facility] MCH 30.3 26.7 - 33.6 pg 08/20/2023 3:00 PM [facility] MCHC 33.2 31.7 - 36.3 g/dL 08/20/2023 3:00 PM [facility] RDW-CV 15.1(H) 11.3 - 14.8 % 08/20/2023 3:00 PM [facility] Platelet Count 570(H) 150 - 420 x10E9/L 08/20/2023 3:00 PM [facility] MPV 9.1 7.8 - 11.4 fL 08/20/2023 3:00 PM [facility] Neutrophil % 54.0 41.0 - 74.0 % 08/20/2023 3:00 PM [facility] Lymphocyte % 30.2 17.0 - 47.0 % 08/20/2023 3:00 PM [facility] Monocyte % 11.2(H) 3.0 - 11.0 % 08/20/2023 3:00 PM [facility] Eosinophil % 3.0 0.0 - 7.0 % 08/20/2023 3:00 PM [facility] Basophil % 1.3 0.0 - 1.6 % 08/20/2023 3:00 PM [facility] Immature Granulocytes % 0.3 0.0 - 1.0 % 08/20/2023 3:00 PM [facility] Neutrophil Absolute 6.04 1.60 - 7.50 x10E9/L 08/20/2023 3:00 PM [facility] Lymphocyte Absolute 3.38 1.00 - 4.40 x10E9/L 08/20/2023 3:00 PM [facility] Monocyte Absolute 1.25(H) 0.15 - 1.00 x10E9/L 08/20/2023 3:00 PM [facility] Eosinophil Absolute 0.34 0.00 - 0.60 x10E9/L 08/20/2023 3:00 PM [facility] Basophil Absolute 0.15(H) 0.00 - 0.13 x10E9/L 08/20/2023 3:00 PM [facility] NRBC 0.2(H) <=0.0 /100 WBC 08/20/2023 3:00 PM [facility] Blood BLOOD SPECIMEN / Unknown Lab Venipuncture / Unknown 08/20/2023 2:42 PM CDT 08/20/2023 2:54 PM CDT Cindy Wilkerson MD LAB - HEMATOLOGY ORD ERABLES [facility] [address] [place] [address], [facility] [phone] * (ABNORMAL) COMPREHENSIVE METABOLIC PANEL (08/20/2023 2:42 PM CDT) Only the most recent of2 resultswithin the time period is included. BUN 28(H) 7 - 26 mg/dL 08/20/2023 3:27 PM [facility] Creatinine 1.16(H) 0.56 - 0.96 mg/dL 08/20/2023 3:27 PM [facility] Sodium 139 136 - 145 mmol/L 08/20/2023 3:27 PM [facility] Potassium 3.7 3.5 - 4.5 mmol/L 08/20/2023 3:27 PM [facility] Chloride 101 98 - 107 mmol/L 08/20/2023 3:27 PM [facility] CO2 25 22 - 29 mmol/L 08/20/2023 3:27 PM [facility] Glucose 129(H) 70 - 115 mg/dL 08/20/2023 3:27 PM [facility] Calcium 10.1 8.4 - 10.2 mg/dL 08/20/2023 3:27 PM [facility] Protein Total 8.0 6.0 - 8.3 g/dL 08/20/2023 3:27 PM [facility] Albumin 3.6 3.4 - 5.0 g/dL 08/20/2023 3:27 PM [facility] Bilirubin Total 0.3 0.2 - 1.2 mg/dL 08/20/2023 3:27 PM [facility] Alkaline Phosphatase 114 40 - 150 U/L 08/20/2023 3:27 PM [facility] ALT 17 5 - 55 U/L 08/20/2023 3:27 PM [facility] AST 14 5 - 34 U/L 08/20/2023 3:27 PM [facility] Anion Gap 13 6 - 16 08/20/2023 3:27 PM [facility] BUN/Creatinine Ratio 24(H) 7 - 23 08/20/2023 3:27 PM [facility] Osmolality Calculated 295 275 - 295 mOsm/kg 08/20/2023 3:27 PM [facility] Albumin/Globulin Ratio 0.8(L) 1.1 - 2.3 08/20/2023 3:27 PM [facility] eGFR by CKD-EPI 49(L) >=90 mL/min/1.7 3 m2 08/20/2023 3:27 PM [facility] Blood BLOOD SPECIMEN / Unknown Lab Venipuncture / Unknown 08/20/2023 2:42 PM CDT 08/20/2023 2:54 PM CDT Cindy Wilkerson MD LAB - CHEMISTRY JAMEL GAUTHIER Performing Organization Address City/[facility] Co de Phone Number [facility] [address] [place] [phone], [facility] [phone] * IMAGING RADIOLOGY XRAY RESULTS ORDER (09/15/2022) Anatomical Region Laterality Modality Other 09/15/2022 Narrative 09/15/2022 Ordered by an unspecified provider. Scanned Document IMAGING * (ABNORMAL) CBC W DIFF (EXTERNAL RESULT ENTRY) (08/08/2022 10:12 AM CDT) WBC (EXTERNAL RESULT) 14.82(A) 10^3/ul [facility] Hemoglobin (EXTERNAL RESULT) 11.0(A) g/dl [facility] Hematocrit (EXTERNAL RESULT) 33.8(A) % [facility] Platelets (EXTERNAL RESULT) 647(A) 10^3/ul [facility] Neutrophil Absolute (EXTERNAL RESULT) 8.52 10^3/ul [facility] Blood BLOOD SPECIMEN / Unknown 08/08/2022 10:12 AM CDT Historical Provider LAB - HEMATOLOGY ORDERABLES Performing Organization Address City/[facility]/ZIP Co de Phone Number [address] [address], [facility] [phone] * PT INR (EXTERNAL RESULT ENTRY) (08/08/2022 10:12 AM CDT) PT (EXTERNAL) 11.3 sec [facility] INR (EXTERNAL RESULT) 1.0 [facility] Blood BLOOD SPECIMEN / Unknown 08/08/2022 10:12 AM CDT Historical Provider LAB - CHEMISTRY O RDERABLES Performing Organization Address City/[facility]/ZIP Co de Phone Number [address] [address], [facility] [phone] * (ABNORMAL) COMP MET PANEL (EXTERNAL RESULT ENTRY) (08/08/2022 10:12 AM CDT) Glucose (EXTERNAL) 118(A) mg/dL [facility] Sodium (EXTERNAL RESULT) 137 mmol/L [facility] Potassium (EXTERNAL RESULT) 4.2 mmol/L [facility] Chloride (EXTERNAL RESULT) 98 mmol/L [facility] CO2 (EXTERNAL) 30.3 mmol/L [facility] Calcium (EXTERNAL RESULT) 9.2 mg/dL [facility] Anion Gap (EXTERNAL RESULT) 8.7 mmol/L [facility] BUN (EXTERNAL RESULT) 31(A) mg/dL [facility] Creatinine (EXTERNAL RESULT) 1.35(A) mg/dl [facility] Alkaline Phosphatase (EXTERNAL RESULT) 139 U/L [facility] ALT (EXTERNAL RESULT) 21 U/L [facility] AST (EXTERNAL RESULT) 14(A) U/L [facility] Protein Total (EXTERNAL RESULT) 8.3(A) gm/dL [facility] Albumin (EXTERNAL RESULT) 3.1(A) gm/dL [facility] Bilirubin Total (EXTERNAL RESULT) 0.2 mg/dL [facility] eGFR MDRD (EXTERNAL RESULT) 42(A) mL/min/1.7 3m2 [facility] eGFR (EXTERNAL) [facility] Blood BLOOD SPECIMEN / Unknown 08/08/2022 10:12 AM CDT Historical Provider LAB - CHEMISTRY Jacoby ROWE [facility] [address] [place] [address], [facility] [phone] * LAB RESULTS ORDER (08/08/2022) Only the most recent of6 resultswithin the time period is included. 08/08/2022 Narrative 08/08/2022 Ordered by an unspecified provider. Scanned Document LAB - THERAPEUTIC DR JESI MONITORING ORDERABLES * (ABNORMAL) CYTOPLASMIC PATTERN (11/28/2021 3:13 PM CDT) Cytoplasmic Pattern Titer 1:2560(A) 12/02/2021 1:16 PM CDT [facility] ([facility]) Cytoplasmic Pattern AMA(A) 12/02/2021 1:16 PM CDT [facility] ([facility]) Comment: Performed By: [facility] [address] [place] [id number] Tank Truck Mechanic: Martínez Mcgrath MD, PhD Blood BLOOD SPECIMEN / Unknown Lab Venipuncture / Unknown 11/28/2021 3:13 PM CDT 11/28/2021 5:09 PM CDT Cindy Wilkerson MD LAB - CHEMISTRY JAMEL GAUTHIER [facility] ([facility]) [address] * (ABNORMAL) L[place]US BLOOD SINGLE PATTERN (11/28/2021 3:13 PM CDT) L[place]US Pattern Homogeneo us(A) 12/02/2021 1:16 PM CDT [facility] ([facility]) LEXUS Titer 1:2560(A) 12/02/2021 1:16 PM CDT [employer] ([facility]) Comment: Performed By: [facility] [address] [place] [address] Tank Truck Mechanic: Martínez Mcgrath MD, PhD Blood BLOOD SPECIMEN / Unknown Lab Venipuncture / Unknown 11/28/2021 3:13 PM CDT 11/28/2021 5:09 PM CDT Cindy Wilkerson MD LAB - CHEMISTRY JAMEL GAUTHIER [facility] [employer] ([facility]) [address] * (ABNORMAL) [place]US HEP-2 IGG BY IFA (11/28/2021 3:13 PM CDT) [place]US HEp-2 IgG Detected (H) <1:80 12/02/2021 1:16 PM CDT [facility] [employer] ([facility]) LEXUS Interpretive Comment See Note 12/02/2021 1:16 PM CDT [facility] ([facility]) Comment: Homogeneous Pattern Clinical associations: SLE, drug-induced SLE or HAO. Main autoantibodies: Anti-dsDNA, anti-histones or anti-chromatin (anti-nucleosome) Cytoplasmic reticular/AMA pattern Clinical Associations: PBC, SSc, PBC-SSc overlap syndrome, and PBC-SjS overlap syndrome Main autoantibodies: Anti-mitochondrial antibody List of Abbreviations Antisynthetase syndrome (ARS), chronic active hepatitis (CAH), inflammatory myopathies (IM) [dermatomyositis (DM), polymyositis (PM), necrotizing autoimmune [...] diseases (cancers, autoimmune, infectious, and inflammatory conditions) and may also occur in healthy individuals in [...] or diseases. Mitotic staining patterns not reported. Negative results do not necessarily rule out SARD. Performed By: [facility] [address] [place] [address] Tank Truck Mechanic: Martínez Mcgrath MD, PhD Blood BLOOD SPECIMEN / Unknown Lab Venipuncture / Unknown 11/28/2021 3:13 PM CDT 11/28/2021 5:09 PM CDT Cindy Wilkerson MD LAB - SEROLOGY ORDER HARLAN [employer] [facility]) [address] [place] [address], [facility] * (ABNORMAL) ALKALINE PHOSPHATASE BLOOD ISOENZYME PANEL (11/28/2021 3:13 PM CDT) Alkaline Phosphatase Isoenzymes Bone 32 0 - 55 U/L 12/02/2021 12:23 AM CDT [employer] ([facility]) Alkaline Phosphatase Isoenzymes 160(H) 40 - 120 U/L 12/02/2021 12:23 AM CDT [employer] ([facility]) Alkaline Phosphatase Isoenzymes Liver 128(H) 0 - 94 U/L 12/02/2021 12:23 AM CDT [employer] ([facility]) Comment: INTERPRETIVE INFORMATION: Alk-Phosphatase Liver Calc Bone Specific Alkaline Phosphatase (4287610) and 5'-nucleotidase (4539101) may be useful in identifying disorders of bone and liver, respectively. Alkaline Phosphatase Isoenzymes Other 0 U/L 12/02/2021 12:23 AM CDT [facility] [employer] ([facility]) Comment: Performed By: [facility] [address] [place] [address] Tank Truck Mechanic: Martínez Mcgrath MD, PhD Blood BLOOD SPECIMEN / Unknown Lab Venipuncture / Unknown 11/28/2021 3:13 PM CDT 11/28/2021 5:09 PM CDT Cindy Wilkerson MD LAB - CHEMISTRY JAMEL GAUTHIER [facility]) [address] [place] [address], [facility] * (ABNORMAL) LEXUS BLOOD SCREEN W/REFLEX TITER (11/28/2021 3:13 PM CDT) LEXUS IgG Detected (A) None Detected 11/30/2021 12:30 AM CDT [facility] [employer] ([facility]) Comment: Antibodies to Anti-Nuclear Antibodies [...] dsDNA, histones, SS-A (Ro), SS-B (La), George, George/VASCULAR SURGERY PHYSICIAN, Scl-70, Loan-1, centromeric proteins, other antigens extracted from the HEp-2 cell nucleus. LEXUS ADRIANNA assays have been reported to have lower sensitivities than LEXUS IFA for systemic autoimmune rheumatic diseases (SARD). Negative results do not necessarily rule out SARD. Performed By: [facility] [address] [place] [address] Tank Truck Mechanic: Martínez Mcgrath MD, PhD Blood BLOOD SPECIMEN / Unknown Lab Venipuncture / Unknown 11/28/2021 3:13 PM CDT 11/28/2021 5:09 PM CDT Cindy Wilkerson MD LAB - CHEMISTRY JAMEL GAUTHIER [facility] [employer] ([facility]) [address] [place] [address], [facility] * IGM BLOOD (11/28/2021 3:13 PM CDT) IgM 72 37 - 286 mg/dL 11/28/2021 5:31 PM CDT [facility] Blood BLOOD SPECIMEN / Unknown Lab Venipuncture / Unknown 11/28/2021 3:13 PM CDT 11/28/2021 5:09 PM CDT Cindy Wilkerson MD LAB - CHEMISTRY JAMEL GAUTHIER Performing Organization Address City/[facility]/ZIP Co de Phone Number [facility] [address] [place] [phone], [facility] [phone] * IGG BLOOD (11/28/2021 3:13 PM CDT) IgG 1,425 767 - 1,590 mg/dL 11/28/2021 5:31 PM CDT [facility] Blood BLOOD SPECIMEN / Unknown Lab Venipuncture / Unknown 11/28/2021 3:13 PM CDT 11/28/2021 5:09 PM CDT Cindy Wilkerson MD LAB - CHEMISTRY JAMEL GAUTHIER Performing Organization Address City/[facility]/ZIP Co de Phone Number [facility] [address] [place] [address], [place] [phone] * (ABNORMAL) IGA BLOOD (11/28/2021 3:13 PM CDT) IgA 634(H) 61 - 356 mg/dL 11/28/2021 5:31 PM CDT [facility] Comment:Result obtained by sandra castellano. Blood BLOOD SPECIMEN / Unknown Lab Venipuncture / Unknown 11/28/2021 3:13 PM CDT 11/28/2021 5:09 PM CDT Cindy Wilkerson MD LAB - CHEMISTRY JAMEL GAUTHIER [facility] [address] [address], [facility] [phone] Care Teams Abstract Maker Relationship Specialty Start Date End Date Cachorro Alvarez MD [address] [place] [address] PCP - General 11/28/21
--- OUTSIDE RECORDS SUMMARY | 2024-05-13 09:47 | XMS_ITS | Encounter Summary ---
Author Organization [facility] Address [facility] [place] [address] Care Team Providers Care Traffic Control Flagger Name Role Phone Esequiel Smiley MD Primary Care Provider [phone] Cachorro Alvarez MD Primary Care Provider [phone] Angelika Bashir MD Primary Care Provider [phone] Encounter Details Date Type Department Care Team (Late st Contact Info) Description 06/20/2017 Abstract [facility] CONVERSION [address] [place] [address] , Generic Conversion, Social History Tobacco Use Types Packs/Day Years Used Date Smoking Tobacco: Never Assessed Comments Unknown Sex and Gender Information Value Date Recorded Sex Assigned at Female 07/09/2018 10:28 AM CDT Legal Sex Female 7:06 PM VICE PRESIDENT OF CUSTOMER SERVICE Gender Identity Female 07/09/2018 10:28 AM CDT Sexual Orientation Not on file documented as of this encounter Plan of Treatment Upcoming Encounters Date Type Department Care Team (Late st Contact Info) Description 05/18/2024 9:00 AM VICE PRESIDENT OF CUSTOMER SERVICE Appointment [facility] [address] [address] Angelika Bashir MD [address] [place] [address] documented as of this encounter Visit Diagnoses Not on filedocumented in this encounter Additional Health Concerns Infection Onset Date Last Indicated Resolved Time COVID-19 Rule Out 01/02/2024 01/02/2024 01/02/2024 3:07 PM CDT documented as of this encounter Care Teams Traffic Control Flagger Relationship Specialty Start Date End Date Esequiel Smiley MD [address] [place] [address] PCP - General FAMILY PRACTICE 07/08/18 12/13/19 Cachorro Alvarez MD [address] [place] [address] PCP - General FAMILY PRACTICE 12/14/19 01/01/24 Angelika Bashir MD [address] [place] [address] PCP - General FAMILY PRACTICE 01/02/24 documented as of this encounter
--- OUTSIDE RECORDS SUMMARY | 2024-05-13 09:47 | XMS_ITS | Referral Summary ---
Author Organization [facility] Address [address] [place] [address] Care Team Providers Care Practicing Md Anesthesiologist Name Role Phone Cachorro Alvarez MD Primary Care Provider [phone] Source Comments [facility],non-owned Affiliates and Associated Physician Practices is amultiple site organization consisting of ambulatory clinics and hospital sitesin [place], [place], [place] and [place]. This disclosure is being madepursuant to the Care Everywhere program and may not contain all information available regarding this patient. Last updated 17.[facility] Allergies No known active allergies Medications * [...] fluticasone propionate (Flonase) 50 MCG/ACT nasal spray [place] 2 (two) sprays into each nostril once [...] Visit [facility] [address] [facility] [place] [phone] Cindy Wilkerson MD [address] [facility] [facility] [address] [place] [phone] Goals Goal Patient Goal Type Associated Problems [...] prior to your last dose Care Teams Practicing Md Anesthesiologist Relationship Specialty Start Date End Date Cachorro Alvarez MD [address] [place] [address] PCP - General 11/28/21
[2024-05-13] MEDS: diphenhydrAMINE HCl CAP 25 MG CAPSULE PO (09:53)
[2024-05-13] MEDS: IRON SUCROSE COMPLEX 200 MG, IRON SUCROSE COMPLEX 100 MG in SODIUM CHLORIDE 0.9% IV 235 ML 125 MG IVPB (10:01)
[2024-05-13 10:03] VITALS: BP 135/54; PULSE 77; RESP 18; TEMP 36.8
--- NOTE | 2024-05-13 10:04 | PC.NURSE ---
Pt to room 202 amb at 0920 with spouse. A&Ox3. Oriented to room and plan of care. Pt has no questions or concerns. Call martell in reach. at bedside. Reminded to call with needs.
--- NOTE | 2024-05-13 10:06 | PC.NURSE ---
IV venofer infusing as ordered. Pt tolerating well. Has no complaints.
--- NOTE | 2024-05-13 11:09 | PC.NURSE ---
Pt remains up in chair. IV infusing without difficulty. Pt has no complaints. at bedside. Reminded to call with needs.
--- NOTE | 2024-05-13 12:02 | PC.NURSE ---
Venofer infused without difficulty as ordered. Pt tolerated well. Has no questions or concerns. Pt to return next Thursday for same treatment. Discharged to home ambulatory with spouse.
== END 2024-05-13 09:17 | disposition home or self-care (01) ==
PROVIDERS: Visit Provider Internal Medicine Hematology & Oncology
DX: D50.9 Iron deficiency anemia, unspecified (principal)
CPT/HCPCS: 96365; 96366; A9270; J1756; J7050

== ENCOUNTER 2024-05-20 09:08 | Outpatient (CLI) | payer MEDICARE, SELFPAY ==
--- OUTSIDE RECORDS SUMMARY | 2024-05-20 09:13 | XMS_ITS | Patient Health Summary ---
Author Organization [facility] Address [address] [place] [address] Care Team Providers Care Drilling Field Specialist Name Role Phone Cachorro Alvarez MD Primary Care Provider [phone] Note from [facility],non-owned Affiliates and Associated Physician Practices is amultiple site organization consisting of ambulatory clinics and hospital sitesin [place], [place], [place] and [place]. This disclosure is being madepursuant to the Care Everywhere program and may not contain all information available regarding this patient. Last updated [facility] Allergies No known active allergies Medications * [...] propionate (Flonase) 50 MCG/ACT nasal spray(Started 10/24/2021) Stanley 2 (two) sprays into each nostril once [...] Performed for Nonalcoholic fatty liver disease * ELXUS HEP-2 IGG BY IFA(Performed 11/28/2021) Performed for [...] (ABNORMAL) HEMOGLOBIN A1C (08/20/2023 2:42 PM CDT) [facility] Hemoglobin A1c 6.6(H) <=5.6 % 08/21/2023 9:06 AM T [facility] Estimated Average Glucose 143 mg/dL 08/21/2023 9:06 AM T [facility] Comment: HbA1c Interpretation: Normal : < 5.7% Pre-diabetes: 5.7-6.4% Diabetes: Equal to or greater than 6.5% Test results diagnostic of diabetes should be repeated for confirmation. Treatment target values recommended by ADA and other clinical organizations should be used to evaluate metabolic control in patients. Reference: [place] [employer], Standards of Care in Diabetes [...] Wilkerson MD LAB - CHEMISTRY JAMEL GAUTHIER [address] [address], [facility] [phone] * (ABNORMAL) CBC W/ DIFFERENTIAL (08/20/2023 2:42 PM CDT) [facility] WBC 11.2(H) 4.0 - 10.7 x10E9/L 08/20/2023 3:00 PM CDT [facility] RBC Count 3.93 3.90 - 5.20 x10E12/L 08/20/2023 3:00 PM CDT [facility] Hemoglobin 11.9 11.9 - 15.8 g/dL 08/20/2023 3:00 PM CDT [facility] Hematocrit 35.8 34.8 - 46.1 % 08/20/2023 3:00 PM [facility] MCV 91.1 80.0 - 98.0 fL 08/20/2023 3:00 PM [facility] MCH 30.3 26.7 - 33.6 pg 08/20/2023 3:00 PM [facility] MCHC 33.2 31.7 - 36.3 g/dL 08/20/2023 3:00 PM [facility] RDW-CV 15.1(H) 11.3 - 14.8 % 08/20/2023 3:00 PM [facility] Platelet Count 570(H) 150 - 420 x10E9/L 08/20/2023 3:00 PM [facility] MPV 9.1 7.8 - 11.4 fL 08/20/2023 3:00 PM [facility] Neutrophil % 54.0 41.0 - 74.0 % 08/20/2023 3:00 PM [facility] Lymphocyte % 30.2 17.0 - 47.0 % 08/20/2023 3:00 PM [facility] Monocyte % 11.2(H) 3.0 - 11.0 % 08/20/2023 3:00 PM [facility] Eosinophil % 3.0 0.0 - 7.0 % 08/20/2023 3:00 PM [facility] Basophil % 1.3 0.0 - 1.6 % 08/20/2023 3:00 PM [facility] Immature Granulocytes % 0.3 0.0 - 1.0 % 08/20/2023 3:00 PM [facility] Neutrophil Absolute 6.04 1.60 - 7.50 x10E9/L 08/20/2023 3:00 PM [facility] Lymphocyte Absolute 3.38 1.00 - 4.40 x10E9/L 08/20/2023 3:00 PM [facility] Monocyte Absolute 1.25(H) 0.15 - 1.00 x10E9/L 08/20/2023 3:00 PM [facility] Eosinophil Absolute 0.34 0.00 - 0.60 x10E9/L 08/20/2023 3:00 PM [facility] Basophil Absolute 0.15(H) 0.00 - 0.13 x10E9/L 08/20/2023 3:00 PM [facility] NRBC 0.2(H) <=0.0 /100 WBC 08/20/2023 3:00 PM [facility] Blood BLOOD SPECIMEN / Unknown Lab Venipuncture / Unknown 08/20/2023 2:42 PM CDT 08/20/2023 2:54 PM CDT Cindy Wilkerson MD LAB - HEMATOLOGY ORD ERABLES [facility] [address] [place] [phone], [facility] [phone] * (ABNORMAL) COMPREHENSIVE METABOLIC PANEL (08/20/2023 2:42 PM CDT) Only the most recent of2 resultswithin the time period is included. BUN 28(H) 7 - 26 mg/dL 08/20/2023 3:27 PM [facility] Creatinine 1.16(H) 0.56 - 0.96 mg/dL 08/20/2023 3:27 PM [facility] Sodium 139 136 - 145 mmol/L 08/20/2023 3:27 PM [facility] Potassium 3.7 3.5 - 4.5 mmol/L 08/20/2023 3:27 PM [facility] Chloride 101 98 - 107 mmol/L 08/20/2023 3:27 PM [facility] CO2 25 22 - 29 mmol/L 08/20/2023 3:27 PM [facility] Glucose 129(H) 70 - 115 mg/dL 08/20/2023 3:27 PM [facility] Calcium 10.1 8.4 - 10.2 mg/dL 08/20/2023 3:27 PM [facility] Protein Total 8.0 6.0 - 8.3 g/dL 08/20/2023 3:27 PM [facility] Albumin 3.6 3.4 - 5.0 g/dL 08/20/2023 3:27 PM [facility] Bilirubin Total 0.3 0.2 - 1.2 mg/dL 08/20/2023 3:27 PM [facility] Alkaline Phosphatase 114 40 - 150 U/L 08/20/2023 3:27 PM [facility] ALT 17 5 - 55 U/L 08/20/2023 3:27 PM [facility] AST 14 5 - 34 U/L 08/20/2023 3:27 PM [facility] Anion Gap 13 6 - 16 08/20/2023 3:27 PM [facility] BUN/Creatinine Ratio 24(H) 7 - 23 08/20/2023 3:27 PM [facility] Osmolality Calculated 295 275 - 295 mOsm/kg 08/20/2023 3:27 PM [facility] Albumin/Globulin Ratio 0.8(L) 1.1 - 2.3 08/20/2023 3:27 PM [facility] eGFR by CKD-EPI 49(L) >=90 mL/min/1.7 3 m2 08/20/2023 3:27 PM [facility] Blood BLOOD SPECIMEN / Unknown Lab Venipuncture / Unknown 08/20/2023 2:42 PM CDT 08/20/2023 2:54 PM CDT Cindy Wilkerson MD LAB - CHEMISTRY JAMEL GAUTHIER Performing Organization Address City/[facility] Co de Phone Number [facility] [address] [place] [phone], [facility] [phone] * IMAGING RADIOLOGY XRAY RESULTS ORDER (09/15/2022) Anatomical Region Laterality Modality Other 09/15/2022 Narrative 09/15/2022 Ordered by an unspecified provider. Scanned Document IMAGING * (ABNORMAL) CBC W DIFF (EXTERNAL RESULT ENTRY) (08/08/2022 10:12 AM CDT) WBC (EXTERNAL RESULT) 14.82(A) 10^3/ul [facility] Hemoglobin (EXTERNAL RESULT) 11.0(A) g/dl [facility] Hematocrit (EXTERNAL RESULT) 33.8(A) % [facility] Platelets (EXTERNAL RESULT) 647(A) 10^3/ul [facility] Neutrophil Absolute (EXTERNAL RESULT) 8.52 10^3/ul [facility] Blood BLOOD SPECIMEN / Unknown 08/08/2022 10:12 AM CDT Historical Provider LAB - HEMATOLOGY ORDERABLES Performing Organization Address City/[facility]/ZIP Co de Phone Number [address] [phone], [facility] [phone] * PT INR (EXTERNAL RESULT ENTRY) (08/08/2022 10:12 AM CDT) PT (EXTERNAL) 11.3 sec [facility] INR (EXTERNAL RESULT) 1.0 [facility] Blood BLOOD SPECIMEN / Unknown 08/08/2022 10:12 AM CDT Historical Provider LAB - CHEMISTRY O RDERABLES Performing Organization Address City/[facility]/ZIP Co de Phone Number [address] [phone], [facility] [phone] * (ABNORMAL) COMP MET PANEL (EXTERNAL RESULT ENTRY) (08/08/2022 10:12 AM CDT) Glucose (EXTERNAL) 118(A) mg/dL [facility] Sodium (EXTERNAL RESULT) 137 mmol/L [facility] Potassium (EXTERNAL RESULT) 4.2 mmol/L [facility] Chloride (EXTERNAL RESULT) 98 mmol/L [facility] CO2 (EXTERNAL) 30.3 mmol/L [facility] Calcium (EXTERNAL RESULT) 9.2 mg/dL [facility] Anion Gap (EXTERNAL RESULT) 8.7 mmol/L [facility] BUN (EXTERNAL RESULT) 31(A) mg/dL [facility] Creatinine (EXTERNAL RESULT) 1.35(A) mg/dl [facility] Alkaline Phosphatase (EXTERNAL RESULT) 139 U/L [facility] ALT (EXTERNAL RESULT) 21 U/L [facility] AST (EXTERNAL RESULT) 14(A) U/L [facility] Protein Total (EXTERNAL RESULT) 8.3(A) gm/dL [facility] Albumin (EXTERNAL RESULT) 3.1(A) gm/dL [facility] Bilirubin Total (EXTERNAL RESULT) 0.2 mg/dL [facility] eGFR MDRD (EXTERNAL RESULT) 42(A) mL/min/1.7 3m2 [facility] eGFR (EXTERNAL) [facility] Blood BLOOD SPECIMEN / Unknown 08/08/2022 10:12 AM CDT Historical Provider LAB - CHEMISTRY Jacoby ROWE [facility] [address] [place] [address], [facility] [phone] * LAB RESULTS ORDER (08/08/2022) Only the most recent of6 resultswithin the time period is included. 08/08/2022 Narrative 08/08/2022 Ordered by an unspecified provider. Scanned Document LAB - THERAPEUTIC DR JESI MONITORING ORDERABLES * (ABNORMAL) CYTOPLASMIC PATTERN (11/28/2021 3:13 PM CDT) Cytoplasmic Pattern Titer 1:2560(A) 12/02/2021 1:16 PM CDT [employer] ([facility]) Cytoplasmic Pattern AMA(A) 12/02/2021 1:16 PM CDT [employer] ([facility]) Comment: Performed By: [facility] [address] [place] [id number] [employer] Consultant: Martínez Mcgrath MD, PhD Blood BLOOD SPECIMEN / Unknown Lab Venipuncture / Unknown 11/28/2021 3:13 PM CDT 11/28/2021 5:09 PM CDT Cindy Wilkerson MD LAB - CHEMISTRY JAMEL GAUTHIER [employer] ([facility]) [address] * (ABNORMAL) LEXUS BLOOD SINGLE PATTERN (11/28/2021 3:13 PM CDT) LEXUS Pattern Homogeneo us(A) 12/02/2021 1:16 PM CDT [facility] ([facility]) LEXUS Titer 1:2560(A) 12/02/2021 1:16 PM CDT [facility] ([facility]) Comment: Performed By: [facility] [address] [place] [address] [employer] Consultant: Martínez Mcgrath MD, PhD Blood BLOOD SPECIMEN / Unknown Lab Venipuncture / Unknown 11/28/2021 3:13 PM CDT 11/28/2021 5:09 PM CDT Cindy Wilkerson MD LAB - CHEMISTRY JAMEL GAUTHIER [facility] ([facility]) [address] * (ABNORMAL) LEXUS HEP-2 IGG BY IFA (11/28/2021 3:13 PM CDT) LEXUS HEp-2 IgG Detected (H) <1:80 12/02/2021 1:16 PM CDT [facility] ([facility]) LEXUS Interpretive Comment See Note 12/02/2021 1:16 PM CDT [facility] ([facility]) Comment: Homogeneous Pattern Clinical associations: SLE, drug-induced [...] not necessarily rule out SARD. Performed By: [facility] [address] [place] [address] [employer] Consultant: Martínez Mcgrath MD, PhD Blood BLOOD SPECIMEN / Unknown Lab Venipuncture / Unknown 11/28/2021 3:13 PM CDT 11/28/2021 5:09 PM CDT Cindy Wilkerson MD LAB - SEROLOGY ORDER HARLAN [facility]) [address] [place] [address], [facility] * (ABNORMAL) ALKALINE PHOSPHATASE BLOOD ISOENZYME PANEL (11/28/2021 3:13 PM CDT) Alkaline Phosphatase Isoenzymes Bone 32 0 - 55 U/L 12/02/2021 12:23 AM CDT [facility] ([facility]) Alkaline Phosphatase Isoenzymes 160(H) 40 - 120 U/L 12/02/2021 12:23 AM CDT [facility] ([facility]) Alkaline Phosphatase Isoenzymes Liver 128(H) 0 - 94 U/L 12/02/2021 12:23 AM CDT [facility] ([facility]) Comment: INTERPRETIVE INFORMATION: Alk-Phosphatase Liver Calc Bone Specific Alkaline Phosphatase (3695704) and 5'-nucleotidase ([id number]) may be useful in identifying disorders of bone and liver, respectively. Alkaline Phosphatase Isoenzymes Other 0 U/L 12/02/2021 12:23 AM CDT [facility] ([facility]) Comment: Performed By: [facility] [address] [place] [address] [employer] Consultant: Martínez Mcgrath MD, PhD Blood BLOOD SPECIMEN / Unknown Lab Venipuncture / Unknown 11/28/2021 3:13 PM CDT 11/28/2021 5:09 PM CDT Cindy Wilkerson MD LAB - CHEMISTRY JAMEL GAUTHIER [facility]) [address] [place] [address], [facility] * (ABNORMAL) LEXUS BLOOD SCREEN W/REFLEX TITER (11/28/2021 3:13 PM CDT) LEXUS IgG Detected (A) None Detected 11/30/2021 12:30 AM CDT [facility] ([facility]) Comment: Antibodies to Anti-Nuclear Antibodies (LEXUS) detected. [...] histones, SS-A (Ro), SS-B (La), George, George/[employer], Scl-70, Loan-1, centromeric proteins, other antigens extracted from the HEp-2 cell nucleus. LEXUS ADRIANNA assays have been reported to have lower sensitivities than LEXUS IFA for systemic autoimmune rheumatic diseases (SARD). Negative results do not necessarily rule out SARD. Performed By: [facility] [address] [place] [address] [employer] Applications Consultant: Martínez Mcgrath MD, PhD Blood BLOOD SPECIMEN / Unknown Lab Venipuncture / Unknown 11/28/2021 3:13 PM CDT 11/28/2021 5:09 PM CDT Cindy Wilkerson MD LAB - CHEMISTRY JAMEL GAUTHIER [facility] ([facility]) [address] [place] [address], [facility] * IGM BLOOD (11/28/2021 3:13 PM CDT) IgM 72 37 - 286 mg/dL 11/28/2021 5:31 PM CDT [facility] Blood BLOOD SPECIMEN / Unknown Lab Venipuncture / Unknown 11/28/2021 3:13 PM CDT 11/28/2021 5:09 PM CDT Cindy Wilkerson MD LAB - CHEMISTRY JAMEL GAUTHIER Performing Organization Address City/[facility]/ZIP Co de Phone Number [facility] [address] [place] [phone], [facility] [phone] * IGG BLOOD (11/28/2021 3:13 PM CDT) IgG 1,425 767 - 1,590 mg/dL 11/28/2021 5:31 PM CDT [facility] Blood BLOOD SPECIMEN / Unknown Lab Venipuncture / Unknown 11/28/2021 3:13 PM CDT 11/28/2021 5:09 PM CDT Cindy Wilkerson MD LAB - CHEMISTRY JAMEL GAUTHIER Performing Organization Address City/[facility]/ZIP Co de Phone Number [facility] [address] [place] [phone], [place] [phone] * (ABNORMAL) IGA BLOOD (11/28/2021 3:13 PM CDT) IgA 634(H) 61 - 356 mg/dL 11/28/2021 5:31 PM CDT [facility] Comment:Result obtained by sandra castellano. Blood BLOOD SPECIMEN / Unknown Lab Venipuncture / Unknown 11/28/2021 3:13 PM CDT 11/28/2021 5:09 PM CDT Cindy Wilkerson MD LAB - CHEMISTRY JAMLE GAUTHIER [facility] [address] [address], [facility] [phone] Care Teams Drilling Field Specialist Relationship Specialty Start Date End Date Cachorro Alvarez MD [address] [place] [address] PCP - General 11/28/21
--- OUTSIDE RECORDS SUMMARY | 2024-05-20 09:13 | XMS_ITS | Encounter Summary ---
Author Organization [facility] Address Formerly [facility] [place] [address] Care Team Providers Care Mail Clerks Supervisor Name Role Phone Angelika Charles MD Primary Care Provider [phone] Reason for Referral * Imaging (Routine) - New Request Specialty Diagnoses / Procedures Referred By Aristeo lazo Referred To Contact RADIOLOGY Diagnoses Encounter for screening mammogram for malignant neoplasm of breast Procedures MG SCREENING W Angelika Oh MD [address] [place], [place] [address] [address] Phone: tel: fax: Referral ID Status Reason Start Date Expiration Date V isits Requested Visits Authorized New Request 05/10/2024 07/08/2025 1 1 OOR RECREATION SPECIALIST Reason for Visit * Imaging (Routine) - New Request Specialty Diagnoses / Procedures Referred By Aristeo lazo Referred To Contact RADIOLOGY Diagnoses Encounter for screening mammogram for malignant neoplasm of breast Procedures MG SCREENING W Angelika Oh MD [address] [place] [address] Phone: tel: fax: Referral ID Status Reason Start Date Expiration Date V isits Requested Visits Authorized New Request 05/10/2024 07/08/2025 1 1 Encounter Details Date Type Department Care Team ([facility] st Contact Info) Description 05/18/2024 8:52 AM OUTDOOR RECREATION SPECIALIST - 05/18/2024 11:59 PM OUTDOOR RECREATION SPECIALIST Hospital Encounter [facility] [address] [facility] [place] [address] Angelika Charles MD [address] [place] [address] Arrived Discharge Disposition: Home or Self Care (Routine Discharge) Social History Tobacco Use Types Packs/Day Years Used Date Smoking Tobacco: Former Cigarettes 1991 Smokeless Tobacco: Never Alcohol Use Standard Drinks/Week Comments No 0 (1 standard drink = 0.6 oz pur e alcohol) [facility] Utilities Answer Date Recorded In the past 12 months has e electric, gas, oil, or water company [...] any time in the past 12 m [facility], were you homeless or living in a [facility] (including now)? No 01/02/2024 Comments No Sex and Gender Information Value Date Recorded Sex Assigned at Female 07/09/2018 10:28 AM CDT Legal Sex Female 7:06 PM OUTDOOR RECREATION SPECIALIST Gender Identity Female 07/09/2018 10:28 AM CDT Sexual Orientation Not on file documented as of this encounter Functional Status * Are you deaf or do you have serious difficulty hearing Answer Date of Assessment Author Status No 01/02/2024 4:25 PM CDT Rehana Light RN Active * Are you blind or do you have serious difficulty seeing, even when wearing glasses? Answer Date of Assessment Author Status No 01/02/2024 4:24 PM CAROL ANNT Rehana Light RN Active * Do you have serious difficulty walking or climbing stairs? Answer Date of Assessment Author Status Yes 01/02/2024 4:25 PM Rehana Dos Santos RN Active * Do you have difficulty dressing or bathing? Answer Date of Assessment Author Status No 01/02/2024 4:25 PM Rehana Dos Santos RN Active * Because of a physical, mental, or emotional condition, do you have difficulty doing errands alone such as visiting a doctor's office or shopping? Answer Date of Assessment Author Status No 01/02/2024 4:25 PM Rehana Dos Santos RN Active documented as of this encounter Mental Status * Because of a physical, mental, or emotional condition, do you have serious difficulty concentrating, remembering, or making decisions? Answer Entry Date Author Status No 01/02/2024 4:25 PM CDT Rehana Light RN Active documented in this encounter Medications at Time of Discharge albuterol sulfate HFA 108 (90 Base) MCG/ACT inhaler Inhale 2 puffs into the lungs every 4 (four) hours as needed. allopurinol (ZYLOPRIM) 100 MG tablet Take 1 tablet (100 mg total) by mouth 2 (two) times daily. 06/27/2023 aspirin 81 MG tablet Take 1 tablet (81 mg total) by mouth daily. cetirizine (ZYRTEC) 10 MG chewable tablet Chew 1 tablet (10 mg total) by mouth daily. fluticasone propionate 50 MCG/ACT nasal spray 2 sprays by Nasal route daily. folic acid 1 MG tablet Take 1 tablet (1 mg total) by mouth daily. 08/24/2013 furosemide 40 MG tablet Take 1 tablet (40 mg total) by mouth daily. 08/24/2013 glimepiride (AMARYL) 4 MG tablet Take 1 tablet (4 mg total) by mouth every morning before breakfast. 06/04/2023 lovastatin 40 MG tablet Take 1 tablet (40 mg total) by mouth nightly at bedtime. 01/26/2017 magnesium oxide (MAG-OX) 400 (240 Mg) MG tablet Take 1 tablet (400 mg total) by mouth daily. 90 tablet 01/05/2024 metFORMIN 1000 MG tablet Take 1 tablet (1,000 mg total) by mouth 2 (two) times a day. 01/02/2017 montelukast 10 MG tablet Take 1 tablet (10 mg total) by mouth daily. 02/14/2017 pantoprazole EC 40 MG tablet Take 1 tablet (40 mg total) by mouth 2 (two) times a day. 08/24/2013 triamcinolone 0.1 % ointment Apply 1 Application topically as needed. ursodiol (TERESA FORTE) 500 MG tablet Take 1 tablet (500 mg total) by mouth 3 (three) times daily. 11/02/2023 documented as of this encounter Plan of Treatment Not on file documented as of this encounter Goals Goal Patient Goal Type Associated Problems Recent Progress Patient-Stated? Author Safety Patient/family will have appropriate support at home upon discharge General No Janae Ruiz, HEALTH PHYSICS TECHNICIAN documented as of this encounter Procedures Procedure Name Priority Date/Time Associated Diagnosis Comments MG SCREENING W JABARI MARYLOU DIGI Routine 05/18/2024 9:52 AM OUTDOOR RECREATION SPECIALIST Encounter for screening mammogram for malignant neoplasm of breast documented in this encounter Results * MG SCREENING W JABARI MARYLOU DIGI (05/18/2024 9:52 AM OUTDOOR RECREATION SPECIALIST) Anatomical Region Laterality Modality Breast Bilateral Mammography 05/18/2024 1:03 PM OUTDOOR RECREATION SPECIALIST Impressions 05/18/2024 1:03 PM OUTDOOR RECREATION SPECIALIST IMPRESSION: No interval features to suggest malignancy. In the absence of clinical symptoms, return for annual screening mammogram due in 1 year. RECOMMENDATION: Routine Screening, Bilateral Mammogram in 1 year ASSESSMENT: ACR BI-RADS 2 - BENIGN FINDING(S) Ordered By: ANGELIKA CHARLES Interpreted By: Modesto Lewis MD, 05/18/2024 1:03 PM Narrative 05/18/2024 1:03 PM OUTDOOR RECREATION SPECIALIST [id number] [place] [address] EXAMINATION: BILATERAL SCREENING MAMMOGRAPHY Exam Date: 05/18/2024 8:52 AM CLINICAL INDICATION: 73 years of age female routine screening. COMPARISON: Dating back to 02/18/2021 TECHNIQUE: Digital CC & MLO views. Tomosynthesis imaging acquisition Study read with the assistance of a computer-aided detection system. TISSUE DENSITY: There are scattered areas of fibroglandular density. FINDINGS: Nodular tissue pattern is stable. No suspicious grouping of microcalcifications, distortion, or suspicious nodule 3 dimensionally demonstrated in either breast. Breast calcifications are benign. Angelika Charles MD MAMMO Final Result documented in this encounter Visit Diagnoses Diagnosis Encounter for screening mammogram for malignant neoplasm of breast Other screening mammogram documented in this encounter Care Teams Mail Clerks Supervisor Relationship Specialty Start Date End Date Angelika Charles MD [facility] [place] [address] PCP - General FAMILY PRACTICE 01/02/24 documented as of this encounter
--- OUTSIDE RECORDS SUMMARY | 2024-05-20 09:13 | XMS_ITS | Clinical Summary ---
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) 01/02/202404/2023 Acute kidney injury 06/23/2021 06/25/19 22 RUQ pain 07/09/2018 09/01/2018 Deep vein thrombosis of lowe r extremity ([facility]) 12/04/2012 07/09/2018 Cellulitis of left leg 11/30/201207/09 Encounter for preventive health examination 11/29/2012 07/09/2018 Encounters Date Type Department Care Team Description 05/18/2024 8:52 AM HEALTHCARE LIAISON - 05/18/2024 11:59 PM HEALTHCARE LIAISON Hospital Encounter [facility] [address] [place] [address] Brendan Charles MD Arrived Discharge Disposition: Home or Self Care (Routine Discharge) 05/18/2024 Travel 04/22/2024 2:16 PM HEALTHCARE LIAISON - 04/22/2024 11:59 PM HEALTHCARE LIAISON Hospital Encounter [place] [id number] [place] [address] Rosalba Thomas MD Discharge Disposition: Home or Self Care (Routine Discharge) 04/22/2024 1:42 PM HEALTHCARE LIAISON - 04/22/2024 2:15 PM HEALTHCARE LIAISON Hospital Encounter [place] [address] [place] [address] Rosalba Thomas MD Discharge Disposition: Home or Self Care (Routine Discharge) 04/22/2024 Orders Only [place] [address] [place] [address] Rosalba Thomas MD 04/22/2024 Travel 04/14/2024 2:23 PM HEALTHCARE LIAISON - 04/14/2024 11:59 PM HEALTHCARE LIAISON Hospital Encounter [place] [address] [place] [address] Odalys Cabrera APNP Discharge Disposition: Home or Self Care (Routine Discharge) 04/14/2024 2:15 PM HEALTHCARE LIAISON - 04/14/2024 2:22 PM HEALTHCARE LIAISON Hospital Encounter [place] [address] [place] [address] Brendan Charles MD Rao, Krishna A, MD Discharge Disposition: Home or Self Care (Routine Discharge) 04/14/2024 Orders Only [place] [address] [place] [address] Odalys Cabrera APNP 04/14/2024 Orders Only [place] [address] [place] [address] Tom Kwon MD 04/14/2024 Travel from Last 3 Months Immunizations Name Administration Dates Next Due MODERNA COVID-19 (12+) MRNA, LNP-S, PF, 100 MCG/ 0.5 ML DOSE 09/14/2020,2020 Family History Medical History Relation Comments Cancer Brother Diabetes Mother Heart Disease Mother Relation Status Comments Brother Mother Social History Tobacco Use Types Packs/Day Years Used Date Smoking Tobacco: Former Cigarettes 1991 Smokeless Tobacco: Never Tobacco Cessation:Counseling Given: Not Answered Alcohol Use Standard Drinks/Week Comments No 0 (1 standard drink = 0.6 oz pur e alcohol) [facility] Utilities Answer Date Recorded In the past [...] any time in the past 12 [address], were you homeless or living in a correction (including now)? No 01/02/2024 Comments No Sex and Gender Information Value Date Recorded Sex Assigned at Female 07/09/2018 10:28 AM CDT Legal Sex Female 7:06 PM HEALTHCARE LIAISON Gender Identity Female 07/09/2018 10:28 AM CDT [...] Adult (#1) 2024 Hemoglobin A1C 10/12/2024 04/14/2024, 08/04, 01/30/2022 Kidney Health Evaluation 04/14/2025 04/14/2024 Lipid Panel 04/14/2025 04/14/2024, 01/30/2022 Mammogram Screening 05/18/2026 05/18/2024, 04/22/2023, 03/12/2023, Additional history exists Hepatitis C Completed 02/24/2022 RSV Immunizations Under 20 Months Aged Out No longer eligible based on patient's age to complete this topic Goals Goal Patient Goal Type Associated Problems Recent Progress Patient-Stated? 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/HCC) URINE BACTERIA CULTURE Routine 2:12 PM HEALTHCARE LIAISON Unspecified symptoms and signs involving the genitourinary system HC URINALYSIS AUTO W/MICRO Routine 04/22/2024 2:12 PM HEALTHCARE LIAISON Unspecified symptoms and signs involving the genitourinary system ALBUMIN URINE RANDOM W/CREATININE Routine 04/14/2024 2:35 PM HEALTHCARE LIAISON Mixed hyperlipidemia Type 2 diabetes mellitus not at goal (CMS/HCC HHS/HCC) HEMOGLOBIN, GLYCOSYLATED Routine 04/14/2024 2:33 PM HEALTHCARE LIAISON Mixed hyperlipidemia Type 2 diabetes mellitus not at goal (CMS/HCC HHS/HCC) LIPID PANEL Routine 04/14/2024 2:33 PM HEALTHCARE LIAISON Mixed hyperlipidemia Type 2 diabetes mellitus not at goal (CMS/HCC HHS/HCC) FERRITIN Routine 04/14/2024 2:33 PM HEALTHCARE LIAISON Anemia, iron deficiency IRON SAT PANEL (IRON,IBC,%SAT) Routine 04/14/2024 2:33 PM HEALTHCARE LIAISON Anemia, iron deficiency CBC W/DIFF AUTOMATED Routine 04/14/2024 2:33 PM HEALTHCARE LIAISON Anemia, iron deficiency HEPATITIS C ANTIBODY Routine 02/24/2022 2:53 PM HEALTHCARE LIAISON Nonalcoholic fatty liver disease Autoimmune hemolytic anemia (CMS/HCC HHS/HCC) Encounter for hepatitis C virus screening test for high risk patient COLONOSCOPY Routine HEALTHCARE LIAISON from Last 3 Months or Most Recently Relevant to Health Maintenance Results * MG SCREENING W JABARI MARYLOU DIGI (05/18/2024 9:52 AM HEALTHCARE LIAISON) Anatomical Region Laterality Modality Breast Bilateral Mammography 05/18/2024 1:03 PM HEALTHCARE LIAISON Impressions 05/18/2024 1:03 PM HEALTHCARE LIAISON IMPRESSION: No interval features to suggest malignancy. In the absence of clinical symptoms, return for annual screening mammogram due in 1 year. RECOMMENDATION: Routine Screening, Bilateral Mammogram in 1 year ASSESSMENT: ACR BI-RADS 2 - BENIGN FINDING(S) Ordered By: BRENDAN CHALRES Interpreted By: Modesto Lewis MD, 05/18/2024 1:03 PM Narrative 05/18/2024 1:03 PM HEALTHCARE LIAISON [address] [place] [address] EXAMINATION: BILATERAL SCREENING MAMMOGRAPHY Exam Date: 05/18/2024 [...] in either breast. Breast calcifications are benign. us Brendan Charles MD MAMMO Final Result * US RETROPERITONEAL COMP (04/22/2024 2:13 PM HEALTHCARE LIAISON) Anatomical Region Laterality Modality Abdomen Ultrasound 04/22/2024 2:46 PM HEALTHCARE LIAISON Impressions 04/22/2024 2:50 PM HEALTHCARE LIAISON IMPRESSION: Iso-echo kidneys can be from the RASHIDA or be normal variant. No hydronephrosis. No renal atrophy. Incomplete bladder emptying. Ordered By: ROSALBA THOMAS Interpreted By: Modesto Lewis MD, 04/22/2024 2:46 PM Narrative 04/22/2024 2:50 PM HEALTHCARE LIAISON [address] [place] [place] [address] Examination: Retroperitoneal ultrasound. Exam date: 04/22/2024 Clinical [...] Procedure Note Modesto Lewis MD - 04/22/[address] [place] [address] Examination: Retroperitoneal ultrasound. Exam date: 04/22/2024 Clinical [...] lt * (ABNORMAL) URINALYSIS (04/22/2024 2:12 PM HEALTHCARE LIAISON) COLOR (U) YELLOW 04/22/2024 2:37 PM HEALTHCARE LIAISON [facility] TRANSPARENCY CLEAR 04/22/2024 2:37 PM HEALTHCARE LIAISON [facility] SPECIFIC GRAVITY (U) 1.010 1.000 - 1.025 04/22/2024 2:37 PM HEALTHCARE LIAISON [facility] U PH 5.5 5.0 - 8.0 04/22/2024 2:37 PM HEALTHCARE LIAISON [facility] LEUKOCYTES (U) 1+(A) NEGATIVE 04/22/2024 2:37 PM HEALTHCARE LIAISON [facility] NITRITES NEGATIVE NEGATIVE 04/22/2024 2:37 PM HEALTHCARE LIAISON [facility] PROTEIN RANDOM (U) NEGATIVE NEGATIVE 04/22/2024 2:37 PM HEALTHCARE LIAISON [facility] GLUCOSE (U) NEGATIVE NEGATIVE 04/22/2024 2:37 PM HEALTHCARE LIAISON [facility] KETONES MG/DL (U) NEGATIVE NEGATIVE 04/22/2024 2:37 PM HEALTHCARE LIAISON [facility] UROBILINOGEN 0.2 <1.0 EU/DL 04/22/2024 2:37 PM HEALTHCARE LIAISON [facility] BILIRUBIN (U) NEGATIVE NEGATIVE 04/22/2024 2:37 PM HEALTHCARE LIAISON [facility] BLOOD (U) NEGATIVE NEGATIVE 04/22/2024 2:37 PM HEALTHCARE LIAISON [facility] WBC/HPF 10-20(A) 0 - 5 /HPF 04/22/2024 2:37 PM HEALTHCARE LIAISON [facility] RBC/HPF 0-5 0 - 5 /HPF 04/22/2024 2:37 PM HEALTHCARE LIAISON [facility] EPI/LPF RARE /LPF 04/22/2024 2:37 PM HEALTHCARE LIAISON [facility] BACTERIA (U) 1+ /HPF 04/22/2024 2:37 PM HEALTHCARE LIAISON [facility] URINE SPECIMEN OBTAINED BY CLEAN CATCH PROCEDURE / Unknown 04/22/2024 2:12 PM HEALTHCARE LIAISON Rosalba Thomas MD URINE ORDERABLES Final Res ult [facility] [address] [place] [address], * URINE BACTERIA CULTURE (04/22/2024 2:12 PM HEALTHCARE LIAISON) SPEC DESCRIPTION URINE CLEAN CATCH 04/22/2024 2:18 PM HEALTHCARE LIAISON [facility] SPECIAL REQUESTS NO SPECIAL REQUEST 04/22/2024 2:18 PM HEALTHCARE LIAISON [facility] CULTURE RESULT FEW CONTAMINANTS 04/06 10:26 AM HEALTHCARE LIAISON [facility] URINE SPECIMEN OBTAINED BY CLEAN CATCH PROCEDURE / Unknown 04/22/2024 2:12 PM HEALTHCARE LIAISON 04/22/2024 2:16 PM HEALTHCARE LIAISON Rosalba Thomas MD MICROBIOLOGY - GENERAL ORD ERABLES Final Result Performing Organization Address [facility]/ZIP Co de Phone Number [facility] [address] [place] [address], [place] [phone] [facility] [address] [place] [address], * ALBUMIN CREATININE URINE RANDOM (04/14/2024 2:35 PM HEALTHCARE LIAISON) ALBUMIN (U) 0.1 MG/DL 04/14/2024 3:02 PM [facility] Comment:REFERENCE RANGE NOT ESTABLISHED CREATININE RANDOM (U) <13.0 MG/DL 04/14/2024 3:02 PM [facility] Comment:REFERENCE RANGE NOT ESTABLISHED ALBUMIN/CREAT RATIO UNABLE TO CALCULATE <30 MG/G 04/14/2024 3:02 PM [facility] Comment: NORMAL TO MILDLY INCREASED ALBUMINURIA: <30 MG/G MODERATELY INCREASED ALBUMINURIA: 30 TO 300 MG/G SEVERELY INCREASED ALBUMINURIA: >300 MG/G PER KDIGO URINE SPECIMEN / Unknown 04/14/2024 2:35 PM HEALTHCARE LIAISON Odalys Cabrera APNP URINE ORDERABLES Final Res ult Performing Organization Address City/[facility] [address] [facility]/ZIP Co de Phone Number [facility] [address] [place] [address], * (ABNORMAL) HEMOGLOBIN, GLYCOSYLATED (04/14/2024 2:33 PM HEALTHCARE LIAISON) HGB A1C 6.2(H) <5.7 % 04/15/2024 3:05 PM HEALTHCARE LIAISON [facility] ESTIMATED AVG GLUCOSE 131(H) 74 - 114 MG/DL 04/15/2024 3:05 PM HEALTHCARE LIAISON [facility] 04/14/2024 2:33 PM HEALTHCARE LIAISON Odalys BAUER LABORATORY Final Resu lt [facility] [address] [place] [address], [place] [phone] * (ABNORMAL) IRON SATURATION PNL (FE/TIBC/SAT) (04/14/2024 2:33 PM HEALTHCARE LIAISON) IRON 27(L) 50 - 170 MCG/DL 04/14/2024 3:16 PM HEALTHCARE LIAISON [facility] IRON BINDING CAPACITY 343 250 - 450 MCG/DL 04/14/2024 3:16 PM HEALTHCARE LIAISON [facility] IRON SATURATION 8 % 3:16 PM HEALTHCARE LIAISON [facility] Comment:REFERENCE RANGE NOT ESTABLISHED 04/14/2024 2:33 PM HEALTHCARE LIAISON Tom Kwon MD LABORATORY Final Result Performing Organization Address City/[facility]/ZIP Co de Phone Number [facility] [address] [place] [address], [place] [phone] * LIPID PANEL (04/14/2024 2:33 PM HEALTHCARE LIAISON) CHOLESTEROL 177 MG/DL 04/15/2024 2:09 PM HEALTHCARE LIAISON [facility] Comment:DESIRABLE: <200 TRIGLYCERIDES 124 MG/DL 04/15/2024 2:09 PM HEALTHCARE LIAISON [facility] Comment:<150 NORMAL HDL 78 >49 MG/DL 04/15/2024 2:09 PM HEALTHCARE LIAISON [facility] LDL-C 74 MG/DL 04/15/2024 2:09 PM HEALTHCARE LIAISON [facility] Comment:<100 OPTIMAL VLDL CALCULATION 25 MG/DL 04/15/19 25 2:09 PM HEALTHCARE LIAISON [facility] Comment:REFERENCE RANGE NOT ESTABLISHED CHOL/HDL RATIO 2.3 04/15/2024 2:09 PM HEALTHCARE LIAISON [facility] Comment:REFERENCE RANGE NOT ESTABLISHED LDL/HDL 1.0 04/15/2024 2:09 PM HEALTHCARE LIAISON [facility] Comment:REFERENCE RANGE NOT ESTABLISHED NON HDL CHOLESTEROL 99 MG/DL 04/15/2024 2:09 PM HEALTHCARE LIAISON [facility] Comment:REFERENCE RANGE NOT ESTABLISHED 04/14/2024 2:33 PM HEALTHCARE LIAISON us Odalys RYANNP LABORATORY Final Resu lt [facility] [address] [place] [address], [id number] * (ABNORMAL) CBC W/DIFF AUTOMATED (04/14/2024 2:33 PM HEALTHCARE LIAISON) WBC 11.44(H) 4.00 - 10.80 x10'3/uL 04/14/2024 2:43 PM HEALTHCARE LIAISON [facility] RBC 3.73(L) 4.10 - 5.40 x10'6/uL 04/14/2024 2:43 PM [facility] HGB 11.3(L) 12.0 - 16.0 G/DL 04/14/2024 2:43 PM [facility] HCT 33.7(L) 36.0 - 47.0 % 04/14/2024 2:43 PM [facility] MCV 90.3 78.0 - 100.0 FL 04/14/2024 2:43 PM [facility] MCH 30.3 27.0 - 31.0 PG 04/14/2024 2:43 PM [facility] MCHC 33.5 33.0 - 36.0 G/DL 04/14/2024 2:43 PM [facility] RDW 14.5 11.5 - 14.5 % 04/14/2024 2:43 PM [facility] PLT 651(H) 150 - 350 x10'3/uL 04/14/2024 2:43 PM [facility] MPV 8.5 7.4 - 10.4 FL 04/14/2024 2:43 PM [facility] CBC COMMENT NORMAL REFERENCE RANGE NOT ESTABLISHED FOR THE PROPORTIONAL LEUKOCYTE DIFFERENTIAL. 04/14/2024 2:43 PM [facility] NEUTROPHILS % 48.3 % 04/14/2024 2:43 PM [facility] LYMPHOCYTES % 35.8 % 04/14/2024 2:43 PM [facility] MONOCYTES % 12.0 % 04/14/2024 2:43 PM [facility] EOSINOPHILS % 2.6 % 04/14/2024 2:43 PM [facility] BASOPHILS % 1.1 % 04/14/2024 2:43 PM [facility] IMMATURE GRANS % 0.2 % 04/14/19 25 2:43 PM [facility] NRBC % 0.0 % 04/14/2024 2:43 PM [facility] ABS. NEUTROPHILS 5.53 1.60 - 8.30 x10'3/uL 04/14/2024 2:43 PM [facility] ABS. LYMPHOCYTES 4.09 0.80 - 4.70 x10'3/uL 04/14/2024 2:43 PM [facility] ABS. MONOCYTES 1.37 0.00 - 1.50 x10'3/uL 04/14/2024 2:43 PM [facility] ABS. EOSINOPHILS 0.30 0.00 - 0.40 x10'3/uL 04/14/2024 2:43 PM [facility] ABS. BASOPHILS 0.13 0.00 - 0.20 x10'3/uL 04/14/2024 2:43 PM [facility] ABS. IMMATURE GRANULOCYTES 0.02 0.00 - 0.03 x10'3/uL 04/14/2024 2:43 PM [facility] ABS. NUCLEATED RBC'S 0.00 0.00 - 0.01 x10'3/uL 04/14/2024 2:43 PM HEALTHCARE LIAISON [facility] 04/14/2024 2:33 PM HEALTHCARE LIAISON us Tom Kwon MD LABORATORY Final Result Performing Organization Address [facility] Co de Phone Number [facility] [address] [place] [phone], * FERRITIN (04/14/2024 2:33 PM HEALTHCARE LIAISON) FERRITIN 80.0 8 - 252 NG/ML 04/14/2024 3:37 PM HEALTHCARE LIAISON [facility] 04/14/2024 2:33 PM HEALTHCARE LIAISON Tom Kwon MD LABORATORY Final Result Performing Organization Address [facility] de Phone Number [facility] [address] [place] [address], * HEPATITIS C ANTIBODY (02/24/2022 2:53 PM HEALTHCARE LIAISON) Pathologist [facility] HEPATITIS C AB NON-REACTI VE NON-REACT JEVON 02/25/2022 1:40 PM HEALTHCARE LIAISON [facility] Comment: ANTIBODIES TO HCV NOT DETECTED. DOES NOT EXCLUDE THE POSSIBILITY OF EXPOSURE TO HCV. 02/24/2022 2:53 PM HEALTHCARE LIAISON us Cindy Wilkerson MD LABORATORY Final Result Performing Organization Address City/[facility]/ZIP Co de Phone Number [facility] [address] [place] [address], [phone] * Colonoscopy ( HEALTHCARE LIAISON) Narrative [facility] TO EPIC CONVERSION - HEALTHCARE LIAISON Documented hx of procedure Procedure Note , Generic Conversion, - 02/07/2018 Documented hx of procedure us Generic Conversion Md MD HAYES PROCEDURE ORDERABLES Final Result [facility] TO EPIC CONVERSION from Last 3 Months or Most Recently Relevant to Health Maintenance Insurance MEDICARE MEDICARE Advance Directives * Full Code (Latest Code Status on File) Date Activated Date Inactivated Comments 01/02/2024 4:13 PM 01/05/2024 11:39 AM Care Teams Rail Loader Relationship Specialty Start Date End Date Brendan Charles MD [address] [place] [address] PCP - General FAMILY PRACTICE 01/02/24
--- OUTSIDE RECORDS SUMMARY | 2024-05-20 09:13 | XMS_ITS | Encounter Summary ---
Author Organization 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 Gender Identity Female 07/09/2018 10:28 AM CDT Sexual Orientation Not on file documented as of this encounter Plan of Treatment Not on file documented as of this encounter Visit Diagnoses Not on filedocumented in this encounter Additional Health Concerns Infection Onset Date Last Indicated Resolved Time COVID-19 Rule Out 01/02/2024 01/02/2024 01/02/2024 3:07 PM CDT documented as of this encounter Care Teams Company Manager Relationship Specialty Start Date End Date Esequiel Smiley MD [address] [place] [phone] PCP - General FAMILY PRACTICE 07/08/18 12/13/19 Cachorro Alvarez MD [address] [place] [phone] PCP - General FAMILY PRACTICE 12/14/19 01/01/24 Angelika Bashir MD [address] [place] [address] PCP - General FAMILY PRACTICE 01/02/24 documented as of this encounter
--- OUTSIDE RECORDS SUMMARY | 2024-05-20 09:13 | XMS_ITS | Encounter Summary ---
Author Organization [facility] Address [facility] [place] [address] Care Team Providers Care Refractory Specialist Name Role Phone Esequiel Smiley MD Primary Care Provider [phone] Cachorro Alvarez MD Primary Care Provider [phone] Angelika Bashir MD Primary Care Provider [phone] Encounter Details Date Type Department Care Team (Late st Contact Info) Description 06/20/2017 Abstract [facility] CONVERSION [address] [place] [address] , Generic ConversionMD Social History Tobacco Use Types Packs/Day Years Used Date Smoking Tobacco: Never Assessed Comments Unknown Sex and Gender Information Value Date Recorded Sex Assigned at Female 07/09/2018 10:28 AM CDT 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 Gender Identity Female 07/09/2018 10:28 AM CDT Sexual Orientation Not on file documented as of this encounter Plan of Treatment Not on file documented as of this encounter Visit Diagnoses Not on filedocumented in this encounter Additional Health Concerns Infection Onset Date Last Indicated Resolved Time COVID-19 Rule Out 01/02/2024 01/02/2024 01/02/2024 3:07 PM CDT documented as of this encounter Care Teams Refractory Specialist Relationship Specialty Start Date End Date Esequiel Smiley MD [address] [address] PCP - General FAMILY PRACTICE 07/08/18 12/13/19 Cachorro Alvarez MD [address] [place] [address] PCP - General FAMILY PRACTICE 12/14/19 01/01/24 Angelika Bashir MD [address] [place] [address] PCP - General FAMILY PRACTICE 01/02/24 documented as of this encounter
--- OUTSIDE RECORDS SUMMARY | 2024-05-20 09:13 | XMS_ITS | Referral Summary ---
Author Organization [facility] [employer] Address [address] [place] [address] Care Team Providers Care Fur Comber Name Role Phone Cachorro Alvarez MD Primary Care Provider [phone] Source Comments [facility] [employer],non-owned Affiliates and Associated Physician Practices is amultiple site organization consisting of ambulatory clinics and hospital sitesin [place], [place], [place] and [place]. This disclosure is being madepursuant to the Care Everywhere program and may not contain all information available regarding this patient. Last updated 17.[facility] [employer] Allergies No known active allergies Medications * [...] fluticasone propionate (Flonase) 50 MCG/ACT nasal spray [place] 2 (two) sprays into each nostril once [...] Visit [facility] [place] [address] [place] [phone] Cindy Wilkerson MD [address] [place] [address] [place] [phone] Goals Goal Patient Goal Type Associated Problems [...] prior to your last dose Care Teams Fur Comber Relationship Specialty Start Date End Date Cachorro Alvarez MD [address] [place] [address] PCP - General 11/28/21
--- OUTSIDE RECORDS SUMMARY | 2024-05-20 09:13 | XMS_ITS | Clinical Summary ---
Author Organization [facility] [employer] Address [address] [place] [address] Care Team Providers Care Coffee Maker Servicer Name Role Phone Cachorro Alvarez MD Primary Care Provider [phone] [facility] [employer],non-owned Affiliates and Associated Physician Practices is amultiple site organization consisting of ambulatory clinics and hospital sitesin [place], [place], [place] and [place]. This disclosure is being madepursuant to the Care Everywhere program and may not contain all information available regarding this patient. Last updated 17.[facility] [employer] Allergies No known active allergies Medications * [...] fluticasone propionate (Flonase) 50 MCG/ACT nasal spray [place] 2 (two) sprays into each nostril once [...] Visit [facility] [place] [address] [place] [phone] Cindy Wilkerson MD [address] [facility] [address] [place] [address] [place] [phone] Health Maintenance Due Date Last Done Comments [...] prior to your last dose Care Teams Coffee Maker Servicer Relationship Specialty Start Date End Date Cachorro Alvarez MD [address] [place] [phone] PCP - General 11/28/21
[2024-05-20 09:31] VITALS: BP 143/50; PULSE 79; RESP 18; TEMP 36.1; O2SAT 96
[2024-05-20 09:33] VITALS: BMI 41.0
[2024-05-20] MEDS: IRON SUCROSE COMPLEX 300 MG in SODIUM CHLORIDE 0.9% IV 235 ML 125 MG IVPB (10:18)
--- NOTE | 2024-05-20 12:34 | PC.NURSE ---
Discharge instructions verbally given to patient, she verbalized understanding.Patient tolerates infusion well, able to ambulate out of facility by husbands side to personal vehicle.
== END 2024-05-20 09:09 | disposition home or self-care (01) ==
PROVIDERS: Visit Provider Internal Medicine Hematology & Oncology
DX: D50.9 Iron deficiency anemia, unspecified (principal)
CPT/HCPCS: 96365; 96366; 96367; J1756; J7050